=== PATIENT | male | born 1940 | race African-American/Black ===

== ENCOUNTER 2017-02-18 09:28 | Inpatient (IN) ==
--- NOTE | 2017-02-18 12:29 | Emergency Department Note ---
Abdoul Bentley Brooke, am scribing for, and in the presence of, Grace Mckinley DO 12:07 . IElías Debra, DO, personally performed the services described in this documentation, ascribed by Arianna Schreiber in my presence, and it is both accurate and complete 229 . Arrival - Arrival Chief Complaint: GI Bleed/Rectal Stated Complaint: liver mass,Rt abd pain ED Nursing Triage Note: pt c/o black stool x 1 week. reports decreased appetite and weakness. pt has mass on liver he just had ultrasound done on [facility], ordered by Dr Thomas. sclera of eyes appear yellow. Mode of Arrival: Wheelchair Limitations: No Limitations Source: Patient, Family (Daughter), RN Notes Reviewed Time Seen by Provider: 02/18/17 11:50 - History of Present Illness HPI Narrative: Patient is a 76 year old male who presents to the ED with c/o abdominal pain. Patient says he has been having pain for the past "week or two." He went to see Dr. Mckeon, this morning, where he had an ultrasound done. Daughter states that they found a "mass on his liver" and sent him here to be admitted and have tests run. Patient does have a history of alcohol abuse. He also complains of "itching all over." Patient has PMHx of Parkinson's Disease, renal failure and gets dialyzed on Tuesday, , and Tuesday, and hemorrhoids. Onset (ago): week(s) Allergies/Adverse Reactions: Allergies Allergy/AdvReac Type Severity Reaction Status Date / Time ibuprofen [From Advil] Allergy Severe Chest Pain Verified 02/18/17 09:56 povidone-iodine AdvReac Severe ITCHING Verified 02/18/17 09:56 [From Betadine] soap [From Betadine] AdvReac Severe ITCHING Verified 02/18/17 09:56 Home Medications: Home Medications Medication Instructions Recorded Confirmed Type Aspirin [Ecotrin] 81 mg PO DAILY 02/24/15 09/30/16 History Carbidopa/Levodopa 25-100 [Sinemet 1 tablet PO 0700,1100,1600 02/24/15 09/30/16 History 25-100] Meloxicam 7.5 mg PO BID 02/24/15 09/30/16 History Simvastatin 20 mg PO BEDTIME 02/24/15 09/30/16 History rOPINIRole [Requip] 0.5 mg PO TID 02/24/15 09/30/16 History Acetaminophen Tab [Tylenol Tab] 650 mg PO Q4H PRN #0 tablet 09/21/16 09/30/16 Rx Levofloxacin Tab [Levaquin Tab] 500 mg PO DAILY #10 tablet 09/21/16 09/30/16 Rx Simethicone Chew Tab [Mylicon Chew 80 mg PO TID PRN #0 tablet 09/21/16 09/30/16 Rx Tab] Prorenal D 1 tablet PO DAILY 09/30/16 09/30/16 History Review of System - Review of System 12 point system: reviewed and no additional remarkable complaints except as stated - Review of System Constitutional: Absent: fever Respiratory: Absent: respiratory distress Gastrointestinal: Present: abdominal pain Skin: Absent: rash Medical,Surgical,& Family Hx - Medical History Cardio: History of: Cardiac Dysrhythmia (Ibuprofent caused rapid heart beat) Neurology: History of: Parkinson's Disease (Thirteen years duration) HEENT: History of: Eye Problem (GLASSES) Rheumatology: No history of;: Rheumatoid Arthritis Renal: History of: Dialysis (AV GRAFT LEFT ARM, //tue), Renal Failure Gastrointestinal: History of: Hemorrhoids (REMOVAL) Musculoskeletal: History of: Musculoskeletal Problems (PEDRO SHOULDER PAIN, RT KNEE PAIN) Hematology: History of: Blood Transfusion Reaction Other: No history of: Anesthesia Reactions - Surgical History HEENT Surgeries: Patient denies: Eye Surgery, Tonsilectomy & Adenoidectomy Abdominal Surgeries: Surgical HX of: Colonoscopy Patient denies: Abdominal Surgery Orthopedic Surgeries: Surgical HX of;: Orthopedic Surgery (right knee sugery x 2 ), Total Hip Replacement (LEFT), Total Knee Replacement (RIGHT TOTAL KNEE) - Family History Family History: Reports;: Family Heart Disease (sister), Family Hypertension ( SISTERS), Family Stroke (SISTERS) Denies;: Family Anesthesia Reaction, Family Cancer, Family Diabetes, Family Psychiatric Problems - Social History Smoking Status: Former smoker Frequency of Alcohol Use: None Type of Drug Use: None Exam Vital Signs: Vital Signs Temperature 98.8 F 02/18/17 09:52 Pulse Rate 80 02/18/17 09:52 Respiratory Rate 16 02/18/17 09:52 Blood Pressure 148/83 02/18/17 09:52 O2 Sat by Pulse Oximetry 96 02/18/17 09:52 - General General appearance: alert, in no apparent distress - Head Head exam: Present: atraumatic, normocephalic - Eye Eye exam: Present: PERRL, EOMI, other (scleral yellow) - ENT ENT exam: Present: normal exam - Neck Neck exam: Present: normal inspection - Chest Chest inspection: Present: normal inspection, symmetric chest wall rise - Respiratory Respiratory exam: Present: normal lung sounds bilaterally - Cardiovascular Cardiovascular exam: Present: regular rate, normal rhythm, normal heart sounds - Abdominal Exam Abdominal exam: Present: distention, tenderness (RUQ and LUQ). Absent: soft - Extremities Exam Extremities exam: Present: normal inspection - Back Exam Back exam: Present: normal inspection - Neurological Exam Neurological exam: Present: alert, oriented X3 - Psychiatric Psychiatric exam: Present: normal affect, normal mood - Skin Skin exam: Present: warm, dry, intact. Absent: normal color (Jaundice)
[2017-02-18 13:01] LABS: Basophils # 0.1 10*3/uL (0.0-0.2); Eosinophils # 0.3 10*3/uL (0.0-0.87); Eosinophils % 3.2 % (0.00-10.9); Hematocrit 30.1 VOL% (42.0-52.0); Immature Granulocytes % 0.9 %; Immature Granulocytes Absolute 0.07 #; Lymphocytes # 1.7 10*3/uL (1.4-4.0); Mean Corpuscular HGB Conc 36.5 GM/DL (32-36); Mean Corpuscular Hemoglobin 33 PG (27-34); Mean Corpuscular Volume 89.9 FL (87-102); Mean Platelet Volume 10.6 FL (9.6-12.0); Monocytes # 0.7 10*3/uL (0.11-0.8); Monocytes % 9.4 % (1.7-12.7); Neutrophils # 4.9 10*3/uL (1.4-7.4); Neutrophils % 63.5 % (38.7-73.9); Platelet Count 198 T/CUMM (130-400); Red Blood Count 3.35 MC/CUMM (3.8-5.5); Red Cell Distribution Width 18.4 % (9.3-17.3); White Blood Count 7.8 T/CUMM (4-12)
[2017-02-18 13:11] LABS: INR 1.2; PT Patient Result 12.6 SECS
[2017-02-18 13:12] LABS: Partial Thromboplastin Time 56.3 SECS (0-40)
[2017-02-18 13:34] LABS: Albumin 2.9 G/DL (3.4-5.0); Bilirubin,Total 13.8 MG/DL (0.2-1.0); Calcium 8.8 MG/DL (8.5-10.1); Osmolality,Calculated 277.7 MOS/KG (273-304); Potassium 3.3 MMOL/L (3.5-5.1); Total Protein 7.9 G/DL (6.4-8.3)
--- NOTE | 2017-02-18 14:18 | CT Report ---
CT abdomen pelvis wo con Indication: Generalized abdominal pain Comparison: CT abdomen pelvis dated September 18, 2016 Technique: Multiple axial tomographic images of the abdomen and pelvis were obtained without the use of intravenous contrast. Findings: Mild dependent change of the lung bases present. Trace right pleural effusion. Interval increased size of hypodense liver lesion within segment 4 of the liver adjacent to the gallbladder fossa measuring up to 5.4 cm compared to 2.7 cm on prior examination when measured in similar fashion. Question interval cholecystectomy versus contracted gallbladder. Pancreas and spleen appear grossly unchanged. Bilateral adrenal glands and kidneys appear grossly unchanged. Incompletely characterized small bilateral renal cysts. Bilateral renal atrophy present. 1 mm nonobstructing right renal calculus. Urinary bladder nondistended and incompletely evaluated. Pelvis is limited secondary to metallic streak artifact from left total hip prosthesis. No evidence of gastrointestinal obstruction. Continued jomar mesenteric appearance with several retroperitoneal prominent lymph nodes which appear mildly increased in size. Home Care Physical Therapist is a left superior neck lymph node which measures 1.2 cm in short axis dimension. This is compared to 2.5 cm on comparison study. Fat-containing left inguinal hernia. Right inguinal hernia containing a small amount of small bowel as well as fluid. Atherosclerotic calcifications noted. Osseous structures appear unchanged. Ankylosis of bilateral SI joints with degenerative change of the spine. IMPRESSION: Interval increased size of hypodense liver lesion within segment 4 of the liver adjacent to the gallbladder fossa measuring up to 5.4 cm compared to 2.7 cm on prior examination when measured in similar fashion. This is inadequately characterized secondary to lack of intravenous contrast. Considerations include hepatic abscess and neoplasm. Question interval cholecystectomy versus contracted gallbladder. Interval increased retroperitoneal lymphadenopathy. Bilateral inguinal hernias, the one on the right containing small bowel. No evidence of gastrointestinal obstruction. Jomar mesentery and other detailed findings as above. The CT exam was performed using one or more of the following dose reduction techniques: Automated exposure control, adjustment of the mA and/or kV according to patient size, or use of iterative reconstruction technique. PROCEDURE INTERPRETED AT [facility] DEPARTMENT OF RADIOLOGY Final Report Signed by: Dr Ricardo Deluca
[2017-02-18] MEDS ORDERED: ONDANSETRON 4 MG/2 ML VIAL IV PRN (16:48)
[2017-02-18] MEDS ORDERED: ACETAMINOPHEN 325 MG TABLET PO PRN (16:48)
[2017-02-18] MEDS ORDERED: POTASSIUM CHLORIDE 20 MEQ TABLET PO PRN (16:50)
--- NOTE | 2017-02-18 17:08 | Hospitalist History & Physical ---
<Hien Cheng - Last Filed: 02/18/17 17:28> Assessment and Plan (1) Abdominal pain Status: Acute Assessment and plan: Pt. will be admitted. Consult GI for Current Visit: No (2) ESRD (end stage renal disease) on dialysis Problem details: No acute indication for HD at this time. Status: Chronic Assessment and plan: Patient dialyzes TTHS. Will consult nephrology to see pt. bun/creatinine chronically elevated in presence of ESRD. Current Visit: No (3) Liver lesion Status: Acute Assessment and plan: Consult IR for biopsy. Current Visit: Yes History of Present Illness Chief complaint: abdominal pain History of present illness: Mr. Salas is a 76 year old black male patient with a history of ESRD, Parkinson' s disease and anemia that presents to the ED with complaints of abdominal pain. The patient states he has been having the pain for the last 2 weeks or so. He saw Dr. Mckeon this am and an ultrasound was obtained. It revealed a "mass" and he was sent over for eval. Pt. is a former smoker and use to drink a 6 pack a day before quitting. Pt. complains of itching all over but denies fever, chills , n/v/d. Pt. does cite intermittent chest pains and says he is short of breath on exertion. Pt. is being evaluated in room on [address] with family at bedside. Pt. has been admitted and will be followed by our service. GI will be consulted to assist in care. Home Medications Medication Instructions Recorded Confirmed Type Aspirin [Ecotrin] 81 mg PO DAILY 02/24/15 02/18/17 History rOPINIRole [Requip] 0.5 mg PO TID 02/24/15 02/18/17 History Allergies Allergy/AdvReac Type Severity Reaction Status Date / Time ibuprofen [From Advil] Allergy Severe Chest Pain Verified 02/18/17 09:56 povidone-iodine AdvReac Severe ITCHING Verified 02/18/17 09:56 [From Betadine] soap [From Betadine] AdvReac Severe ITCHING Verified 02/18/17 09:56 Medical,Surgical,& Family Hx - Medical History Cardio: History of: Cardiac Dysrhythmia (Ibuprofent caused rapid heart beat) Psychological: No history of: Anxiety Disorders, ADHD, Behavior Problems, Bipolar Disorder, Depression, Previous Suicide Attempt, Psychiatric/Substance Abuse Tx, Schizophrenia, Violent Behavior, Psychiatric Problems Neurology: History of: Parkinson's Disease (Thirteen years duration) HEENT: History of: Eye Problem (GLASSES) Rheumatology: No history of;: Rheumatoid Arthritis Renal: History of: Dialysis (AV GRAFT LEFT ARM, //tue), Renal Failure Gastrointestinal: History of: Hemorrhoids (REMOVAL) Musculoskeletal: History of: Musculoskeletal Problems (PEDRO SHOULDER PAIN, RT KNEE PAIN) Hematology: History of: Blood Transfusion Reaction Other: No history of: Anesthesia Reactions - Surgical History Thoracic Surgeries: Patient denies;: Organ Transplant HEENT Surgeries: Patient denies: Eye Surgery, Tonsilectomy & Adenoidectomy Abdominal Surgeries: Surgical HX of: Colonoscopy Patient denies: Abdominal Surgery Orthopedic Surgeries: Surgical HX of;: Orthopedic Surgery (right knee sugery x 2 ), Total Hip Replacement (LEFT), Total Knee Replacement (RIGHT TOTAL KNEE) - Family History Family History: Reports;: Family Heart Disease (sister), Family Hypertension ( SISTERS), Family Stroke (SISTERS) Denies;: Family Anesthesia Reaction, Family Cancer, Family Diabetes, Family Psychiatric Problems - Social History Smoking Status: Former smoker Frequency of Alcohol Use: None Type of Drug Use: None Marital Status: Lives With:: Spouse Functional capacity: independent ambulation - Constitutional Constitutional: Absent: frequent falls, increased appetite - EENT Eyes: Absent: blurry vision, loss of vision Nose, mouth and throat: Absent: dysphagia, headache(s) - Cardiovascular Cardiovascular: Present: dyspnea on exertion, edema - Respiratory Respiratory: Present: dyspnea. Absent: wheezing - Gastrointestinal Gastrointestinal: Present: abdominal pain, bloating. Absent: nausea, vomiting - Genitourinary Genitourinary: Absent: difficulty urinating, urinary incontinence - Musculoskeletal Musculoskeletal: Absent: back pain - Neurological Neurological: Absent: confusion, numbness - Psychiatric Psychiatric: Absent: anxiety, confusion - Hematologic/Lymphatic Hematologic/Lymphatic: Absent: easy bleeding Exam - Constitutional Vitals: Period Temp Pulse Resp BP Sys/Unger Pulse Ox Last 24 Hr 97.7 F 82-88 18-18 161-162/75-91 97-99 General appearance: no acute distress - Head Head exam: Present: normal inspection, normocephalic - Eye Eye exam: Present: EOMI, periorbital swelling, scleral icterus Pupils: Present: MAKENNA. Absent: fixed - Neck Neck exam: Present: normal inspection - Respiratory Respiratory exam: Present: clear to auscultation bilaterally. Absent: wheezes - GI/Abdominal GI/Abdominal exam: Present: ascites, distended, firm. Absent: rebound - Extremities Exam Extremities exam: Present: normal capillary refill, full ROM, edema (bilateral lower extremity edema) - Neurological Exam Neurological exam: Present: alert, oriented X3, normal gait - Psychiatric Psychiatric exam: Present: normal affect, normal mood - Skin Skin exam: Present: normal color, warm, dry Results - Labs CBC & BMP: 02/18/17 12:55 02/18/17 12:53 Lab Results: I have reviewed the past 24 hour labs <Argenis Gusman - Last Filed: 02/18/17 19:38> History of Present Illness History of present illness: Mr. Salas is a 76 year old male with Liver mass. He has a long history of ETOH but quit some years back. INR GI consult Nephrology consult IR consult for possible biopsy Hepatitis panel Continue current care Exam - Constitutional Vitals: Period Temp Pulse Resp BP Sys/Unger Pulse Ox Last 24 Hr 97.7 F 82-88 18-18 161-162/75-91 97-99 Results - Labs CBC & BMP: 02/18/17 12:55 02/18/17 12:53
[2017-02-18] MEDS: SODIUM CHLORIDE 0.9% 1,000 ML IV SCH (17:23)
--- NOTE | 2017-02-18 18:57 | Nephrology Consult Note ---
History of Present Illness Chief complaint: End-stage renal disease History of present illness: Mr. aSlas is a 76 year old male history of end-stage renal disease dialyzes at the [facility] dialysis unit on a Tuesday schedule patient also has a history of Parkinson's disease who is status post dental work that was done approximately a week ago. Patient presented with a history of itching all over abdominal discomfort and diarrhea after taking antibiotics from the dental procedure. He subsequently presented to his primary care where he had an abdominal ultrasound that showed evidence of a liver mass he has been admitted and had a follow-up CT scan that showed a hypodense liver lesion that was measuring approximately 5.4 cm. At present patient describes abdominal discomfort. He denies any shortness of breath or chest pain. Nephrology is been consulted for renal issues. Home Medications Medication Instructions Recorded Confirmed Type Aspirin [Ecotrin] 81 mg PO DAILY 02/24/15 02/18/17 History rOPINIRole [Requip] 0.5 mg PO TID 02/24/15 02/18/17 History Allergies Allergy/AdvReac Type Severity Reaction Status Date / Time ibuprofen [From Advil] Allergy Severe Chest Pain Verified 02/18/17 09:56 povidone-iodine AdvReac Severe ITCHING Verified 02/18/17 09:56 [From Betadine] soap [From Betadine] AdvReac Severe ITCHING Verified 02/18/17 09:56 Medical,Surgical,& Family Hx - Medical History Cardio: History of: Cardiac Dysrhythmia (Ibuprofent caused rapid heart beat) Psychological: No history of: Anxiety Disorders, ADHD, Behavior Problems, Bipolar Disorder, Depression, Previous Suicide Attempt, Psychiatric/Substance Abuse Tx, Schizophrenia, Violent Behavior, Psychiatric Problems Neurology: History of: Parkinson's Disease (Thirteen years duration) HEENT: History of: Eye Problem (GLASSES) Rheumatology: No history of;: Rheumatoid Arthritis Renal: History of: Dialysis (AV GRAFT LEFT ARM, //tue), Renal Failure Gastrointestinal: History of: Hemorrhoids (REMOVAL) Musculoskeletal: History of: Musculoskeletal Problems (PEDRO SHOULDER PAIN, RT KNEE PAIN) Hematology: History of: Blood Transfusion Reaction Other: No history of: Anesthesia Reactions - Surgical History Thoracic Surgeries: Patient denies;: Organ Transplant HEENT Surgeries: Patient denies: Eye Surgery, Tonsilectomy & Adenoidectomy Abdominal Surgeries: Surgical HX of: Colonoscopy Patient denies: Abdominal Surgery Orthopedic Surgeries: Surgical HX of;: Orthopedic Surgery (right knee sugery x 2 ), Total Hip Replacement (LEFT), Total Knee Replacement (RIGHT TOTAL KNEE) - Family History Family History: Reports;: Family Heart Disease (sister), Family Hypertension ( SISTERS), Family Stroke (SISTERS) Denies;: Family Anesthesia Reaction, Family Cancer, Family Diabetes, Family Psychiatric Problems - Social History Smoking Status: Former smoker Frequency of Alcohol Use: None Type of Drug Use: None Review of Systems Constitutional: fatigue, no chills, no fever(s) Cardiovascular: no chest pain at rest, no chest pain with activity, no dyspnea, no dyspnea on exertion Gastrointestinal: abdominal pain, diarrhea Exam - Vital Signs Vital signs: Period Temp Pulse Resp BP Sys/Unger Pulse Ox Last 24 Hr 97.7 F 82-88 18-18 161-162/75-91 97-99 - General Appearance General appearance: well-developed, well-nourished EENT: ATNC, PERRL Neck: supple Respiratory: clear Cardiology: regular rate, regular rhythm Gastrointestinal: tenderness (Mild tenderness to deep palpation), guarding Neurologic: alert and oriented x3 Musculoskeletal: no clubbing Psychiatric: mood/affect appropriate, cooperative Results - Labs CBC & BMP: 02/18/17 12:55 02/18/17 12:53 Assessment and Plan (1) Parkinson disease, symptomatic Status: Chronic Current Visit: No (2) ESRD (end stage renal disease) on dialysis Problem details: No acute indication for HD at this time. Status: Chronic Assessment and plan: Schedule hemodialysis for Tuesday schedule. Current Visit: No (3) Abdominal pain Status: Acute Current Visit: No (4) Liver lesion Status: Chronic Assessment and plan: Appears to be larger in comparison to other CT studies. Current Visit: Yes
[2017-02-19] MEDS: SODIUM CHLORIDE 0.9% 1,000 ML IV SCH ×2 (06:19→19:24)
[2017-02-19 07:09] LABS: Basophils # 0.1 10*3/uL (0.0-0.2); Basophils % 1.2 % (0.0-0.8); Eosinophils # 0.3 10*3/uL (0.0-0.87); Eosinophils % 4.2 % (0.00-10.9); Hematocrit 29.4 VOL% (42.0-52.0); Hemoglobin 10.6 GM/DL (14.0-18.0); Immature Granulocytes Absolute 0.08 #; Lymphocytes # 1.9 10*3/uL (1.4-4.0); Lymphocytes % 23.9 % (21.2-54.2); Mean Corpuscular HGB Conc 36.1 GM/DL (32-36); Mean Corpuscular Hemoglobin 32 PG (27-34); Mean Corpuscular Volume 87.5 FL (87-102); Mean Platelet Volume 11.4 FL (9.6-12.0); Monocytes # 0.8 10*3/uL (0.11-0.8); Monocytes % 10.5 % (1.7-12.7); Neutrophils # 4.6 10*3/uL (1.4-7.4); Neutrophils % 59.2 % (38.7-73.9); Platelet Count 220 T/CUMM (130-400); Red Blood Count 3.36 MC/CUMM (3.8-5.5); Red Cell Distribution Width 18.3 % (9.3-17.3); White Blood Count 7.8 T/CUMM (4-12)
[2017-02-19 07:47] LABS: Calcium 8.3 MG/DL (8.5-10.1); Free T4 (Free Thyroxine) 1.54 NG/DL (0.76-1.46); Magnesium 2.3 MG/DL (1.8-2.4); Osmolality,Calculated 279.7 MOS/KG (273-304); Potassium 3.6 MMOL/L (3.5-5.1); Risk Ratio 8.36; Thyroid Stimulating Hormone 3.84 uIU/ml (0.358-3.74); VLDL CHOLESTEROL 40.2 MG/DL
[2017-02-19] MEDS: PANTOPRAZOLE 40 MG TABLET PO SCH (08:03)
[2017-02-19 08:28] LABS: Hepatitis A Ab IgM Quant 0.11 Index; Hepatitis A Ab IgM Result Negative (Negative); Hepatitis B Core IgM Quant 0.16 Index; Hepatitis B Core IgM Result Negative (Negative); Hepatitis B Surface Ag Quant < 0.10 Index; Hepatitis B Surface Ag Result Negative (Negative); Hepatitis C Virus Ab Quant 0.14 Index; Hepatitis C Virus Ab Result Negative (Negative)
--- NOTE | 2017-02-19 10:58 | Dialysis Note ---
Dialysis Note - Dialysis Note The patient is seen on dialysis. He is tolerating the procedure. Blood pressures noted to be 149/76.
--- NOTE | 2017-02-19 13:59 | Hospitalist Progress Note ---
Assessment and Plan (1) Abdominal pain Status: Acute Assessment and plan: due to Liver lesion.CT showed an interval increased size of hypodense liver lesion within segment 4 of the liver adjacent to the gall baldder fossa measuring up to 5.4cm compared to 2.7cm on prior exam-? hepatic abscess vs neoplasm. Plan GI has been consulted IR would most likely biopsy the mass on Tuesday. Current Visit: No (2) ESRD (end stage renal disease) on dialysis Problem details: No acute indication for HD at this time. Status: Chronic Assessment and plan: Nephrology is following. Current Visit: No Hospitalist: Subjective Interval history: Patient went for dialysis today.IR should be biopsying liver mass on Tuesday Exam - Constitutional Vitals: Period Temp Pulse Resp BP Sys/Unger Pulse Ox Last 24 Hr 97.7 F-97.9 F 63-88 16-20 138-162/70-91 97-100 General appearance: no acute distress, other (jaundiced) - Head Head exam: Present: normal inspection - Respiratory Respiratory exam: Present: clear to auscultation bilaterally - GI/Abdominal GI/Abdominal exam: Present: ascites - Extremities Exam Extremities exam: Present: edema Results - Labs CBC & BMP: 02/19/17 05:55 02/19/17 05:55 Lab Results: I have reviewed the past 24 hour labs
[2017-02-20 06:08] LABS: Basophils # 0.1 10*3/uL (0.0-0.2); Basophils % 0.9 % (0.0-0.8); Eosinophils # 0.4 10*3/uL (0.0-0.87); Eosinophils % 4.6 % (0.00-10.9); Hematocrit 27.2 VOL% (42.0-52.0); Immature Granulocytes % 1.4 %; Immature Granulocytes Absolute 0.11 #; Lymphocytes # 1.5 10*3/uL (1.4-4.0); Lymphocytes % 19.3 % (21.2-54.2); Mean Corpuscular HGB Conc 36.8 GM/DL (32-36); Mean Corpuscular Hemoglobin 32 PG (27-34); Mean Corpuscular Volume 87.7 FL (87-102); Mean Platelet Volume 11.4 FL (9.6-12.0); Monocytes # 0.8 10*3/uL (0.11-0.8); Monocytes % 10.5 % (1.7-12.7); Neutrophils % 63.3 % (38.7-73.9); Platelet Count 205 T/CUMM (130-400); Red Cell Distribution Width 18.4 % (9.3-17.3); White Blood Count 7.8 T/CUMM (4-12)
[2017-02-20 06:31] LABS: Calcium 8.3 MG/DL (8.5-10.1); Osmolality,Calculated 275.8 MOS/KG (273-304); Potassium 3.8 MMOL/L (3.5-5.1)
[2017-02-20] MEDS: PANTOPRAZOLE 40 MG TABLET PO SCH (08:07)
--- NOTE | 2017-02-20 08:11 | Gastrointestinal Consult Note ---
Assessment and Plan - Time spent with patient Time spent with patient: Greater than 30 minutes (1) Abdominal pain Status: Acute Current Visit: No (2) Abnormal findings on diagnostic imaging of abdomen Status: Acute Current Visit: Yes (3) Other specified counseling Status: Acute Current Visit: Yes History of Present Illness History of present illness: Mr. Salas is a 76 year old male Home Medications Medication Instructions Recorded Confirmed Type Aspirin [Ecotrin] 81 mg PO DAILY 02/24/15 02/18/17 History rOPINIRole [Requip] 0.5 mg PO TID 02/24/15 02/18/17 History Allergies Allergy/AdvReac Type Severity Reaction Status Date / Time ibuprofen [From Advil] Allergy Severe Chest Pain Verified 02/18/17 09:56 povidone-iodine AdvReac Severe ITCHING Verified 02/18/17 09:56 [From Betadine] soap [From Betadine] AdvReac Severe ITCHING Verified 02/18/17 09:56 Medical,Surgical,& Family Hx - Medical History Cardio: History of: Cardiac Dysrhythmia (Ibuprofent caused rapid heart beat) Psychological: No history of: Anxiety Disorders, ADHD, Behavior Problems, Bipolar Disorder, Depression, Previous Suicide Attempt, Psychiatric/Substance Abuse Tx, Schizophrenia, Violent Behavior, Psychiatric Problems Neurology: History of: Parkinson's Disease (Thirteen years duration) HEENT: History of: Eye Problem (GLASSES) Rheumatology: No history of;: Rheumatoid Arthritis Renal: History of: Dialysis (AV GRAFT LEFT ARM, //tue), Renal Failure Gastrointestinal: History of: Hemorrhoids (REMOVAL) Musculoskeletal: History of: Musculoskeletal Problems (PEDRO SHOULDER PAIN, RT KNEE PAIN) Hematology: History of: Blood Transfusion Reaction Other: No history of: Anesthesia Reactions - Surgical History Thoracic Surgeries: Patient denies;: Organ Transplant HEENT Surgeries: Patient denies: Eye Surgery, Tonsilectomy & Adenoidectomy Abdominal Surgeries: Surgical HX of: Colonoscopy Patient denies: Abdominal Surgery Orthopedic Surgeries: Surgical HX of;: Orthopedic Surgery (right knee sugery x 2 ), Total Hip Replacement (LEFT), Total Knee Replacement (RIGHT TOTAL KNEE) - Family History Family History: Reports;: Family Heart Disease (sister), Family Hypertension ( SISTERS), Family Stroke (SISTERS) Denies;: Family Anesthesia Reaction, Family Cancer, Family Diabetes, Family Psychiatric Problems - Social History Smoking Status: Former smoker Frequency of Alcohol Use: None Type of Drug Use: None Exam - Constitutional Vitals: Period Temp Pulse Resp BP Sys/Unger Pulse Ox Last 24 Hr 97.9 F-99.2 F 51-85 16-20 129-165/61-85 97-100 Results - Labs CBC & BMP: 02/20/17 05:20 02/20/17 05:20 Note Addendum: PLEASE NOTE -- automatic citation of patient information is unavoidable in this electronic note. I have made a reasonable effort to review the information cited , but it is not a part of my evaluation, impression, or recommendation unless specifically discussed in the dictated text that follows. As well, voice recognition software was used in the creation of this clinical note. Reasonable effort was made to identify and correct gross errors. Despite proofreading, errors in drafter civil (cad) may be present, including nonsense verbiage at times. If you encounter such an error, please contact me at for discussion and correction. -- Alexa Chief complaint: abdominal pain History of present illness: This is a new patient, a 76-year-old male seen by consultation for evaluation of abdominal pain. The patient is admitted to the hospitalist service under the care of Dr. Gusman with a primary diagnosis of same. The patient was admitted through the emergency department yesterday with primary complaint of mild abdominal cramping, pruritus, and jaunfice. Evaluation at that time revealed mild normocytic anemia, mild coagulopathy, and both laboratory and radiologic evidence of obstructive jaundice. The patient reports that this abdominal pain has been plaguing him for at least two weeks. Ultrasound was accomplished on the day of admission which revealed evidence of a hepatic mass. He has a history of daily alcohol use but quit this sometime ago. He reports having been admitted here in September, or so, of last year with abdominal discomfort and recalls having undergone a percutaneous drainage of his gallbladder. He did not undergo cholecystectomy at that time. Subsequent his discharge, he followed up with a surgeon who advised against cholecystectomy as long as he was feeling well, per the patient's recollection. Review of the inpatient surgical record from September of last year confirms the patient's recollection of acute cholecystitis as well as percutaneous drainage. He suffers from chronic kidney disease requiring dialysis and was last treated yesterday. Patient denies fever, chills, night sweats, rigors, dizziness, neck pain, visual changes, redness of the eyes, dysphagia, odynophagia, difficulty chewing , regurgitation, hematemesis, diarrhea, hematochezia, melena, proctalgia, constipation, change in bowel pattern generally, dysuria, skin changes, temperature regulation issues, flushing, easy bleeding/bruising, mental status change, numbness/weakness in the extremities, yellowing of the eyes/skin, cutaneous eruptions, family history of gastrointestinal cancer and colon polyps , and other complaints in general. Review of systems: 12 point review of systems was negative except as documented above. Outpatient medications: aspirin, ropinirole Inpatient medications: Tylenol, [place], Zofran, Protonix, potassium chloride, normal saline infusion Past Medical History: cardiac dysrhythmia, Parkinson's disease, chronic kidney disease, history of transfusion reaction Social history: negative tobacco. Former alcohol Family history: no gastrointestinal cancers Physical examination: Vital Signs: Current vital signs reviewed and documented above. General Appearance: well-appearing. Not acutely ill. Sitting in a bedside chair eating breakfast. Head: Normocephalic. Neck: Palpation of the neck revealed no abnormalities. Eyes: No scleral icterus. No scleral injection. No conjunctival pallor. Oral Cavity: Odor of breath was normal. No drooling was observed. Lips showed no abnormalities. Floor of the mouth showed no abnormalities. Pharynx: Oropharynx was normal. Lungs: Respiration rhythm and depth was normal. Cardiovascular: Heart rate and rhythm were normal. No murmurs were appreciated. Abdomen: abdomen was not distended. Abdominal palpation revealed minimal tenderness and no hepatosplenomegaly. Ascites was not discovered. Abdominal auscultation revealed positive bowel sounds. Musculoskeletal System: Musculoskeletal system was grossly normal. Neurological: level of consciousness was normal. Speech was normal. Skin: General appearance was normal. Color and pigmentation were normal. No skin lesions. Laboratory: white blood count 7.8, hemoglobin 10.0, hematocrit 27.2, platelets 205, INR 1.2, PT 12.6, ALT 50, AST 63, alkaline phosphatase 209, total bilirubin 13.8, albumin 2.9, total protein 7.9, lipase 551, viral hepatitis screen negative Radiology: -- CT of the abdomen and pelvis, February 18, 2017: hypodense liver lesion within segment 4 adjacent to the gallbladder fossa measuring 5.4 cm, inadequately characterized due to lack of IV contrast; considerations include hepatic abscess and neoplasm; increased retroperitoneal lymphadenopathy; bilateral inguinal hernia -- Right upper quadrant ultrasound, February 18, 2017: gallbladder is not identified inpatient with history of prior percutaneous code assist ostomy, rather predominantly solid 65 x 49 x 43 mm abnormality in the area of the gallbladder bed which may be related to the prior cholecystitis, hematoma, or mass. -- Right upper quadrant ultrasound, September 18, 2016: distended gallbladder with sludge in thickened wall; fatty liver infiltration; no other definite evidence of abnormality demonstrated Impressions: 1. Abdominal pain -- almost certainly related to right upper quadrant pathology , likely a maturing fluid collection involving known diseased gallbladder bed. Consider further imaging to better characterize the nature of this finding. MRCP may be helpful in determining whether the common bile duct is obstructed. Elevated bilirubin out of proportion to alkaline phosphatase implies the possibility of a biliary leak rather than a true obstructive process and this is consistent with data that has been collected to date. I recommend a surgical consultation (Dr. Lisa BUSH saw the patient previously). I recommend initiation of a broad-spectrum antibiotic regimen with enteric coverage, renally dosed. Depending on radiologic findings, there could be some role for ERCP with trans papillary stenting though this is far from clear at present. 2. Nonspecific abnormal imaging, liver -- as discussed above. 3. Other specified counseling -- The patient was seen for greater than 30 minutes. The patient was counseled for greater than 50% of this time regarding differential diagnosis, likely diagnosis, diagnostic and therapeutic alternatives, risks/benefits/alternatives of medications and procedures, and plan of care generally. The patient expressed understanding and wishes to proceed. Recommendations: -- initiate broad-spectrum antibiotic coverage, renally dosed -- further imaging to better characterize nature of this lesion, MRCP most sensitive; clear with nephrology consiltant -- general surgery consultation -- possible indication for endoscopic intervention depending on radiologic results -- consider Atarax for pruritis -- thank you for this consultation. Dr. Ruiz will assume G.I. care for this patient tomorrow.
[2017-02-20] MEDS: SODIUM CHLORIDE 0.9% 1,000 ML IV SCH ×2 (10:22→23:00)
--- NOTE | 2017-02-20 14:14 | Hospitalist Progress Note ---
Assessment and Plan (1) Abdominal pain Status: Acute Assessment and plan: due to Liver lesion.CT showed an interval increased size of hypodense liver lesion within segment 4 of the liver adjacent to the gall baldder fossa measuring up to 5.4cm compared to 2.7cm on prior exam-? hepatic abscess vs neoplasm. Plan GI is following IR would most likely biopsy the mass in am. Current Visit: No (2) ESRD (end stage renal disease) on dialysis Problem details: No acute indication for HD at this time. Status: Chronic Assessment and plan: Nephrology is following. Current Visit: No Hospitalist: Subjective Interval history: Patient seen.He had a session of HD yesterday. Exam - Constitutional Vitals: Period Temp Pulse Resp BP Sys/Unger Pulse Ox Last 24 Hr 98.1 F-99.2 F 51-85 16-20 129-165/59-85 97-100 General appearance: no acute distress, other (juandiced) - Head Head exam: Present: normal inspection - Respiratory Respiratory exam: Present: clear to auscultation bilaterally - Cardiovascular Cardiovascular exam: Present: regular rate and rhythm - GI/Abdominal GI/Abdominal exam: Present: tenderness - Extremities Exam Extremities exam: Present: normal inspection Results - Labs CBC & BMP: 02/20/17 05:20 02/20/17 05:20 Lab Results: I have reviewed the past 24 hour labs
--- NOTE | 2017-02-20 14:28 | Nephrology Progress Note ---
Nephrology - PN: Subj Interval history: Patient is resting comfortably sitting up in chair actually states he has no complaints today tolerated dialysis on yesterday no other acute changes. Exam (PN)-Nephrology - Vital Signs Vital signs: Period Temp Pulse Resp BP Sys/Unger Pulse Ox Last 24 Hr 98.1 F-99.2 F 51-85 16-20 129-165/59-85 97-100 - General Appearance General appearance: well-developed, well-nourished EENT: ATNC Neck: supple Respiratory: clear Cardiology: no edema, regular rate, regular rhythm Gastrointestinal: normoactive bowel sounds, no tenderness Neurologic: alert and oriented x3, CN 3-12 intact Musculoskeletal: no clubbing Psychiatric: mood/affect appropriate - Lab 02/20/17 05:20 02/20/17 05:20 Most recent lab results Calcium 8.3 MG/DL (8.5-10.1) L 02/20/17 05:20 Magnesium 2.3 MG/DL (1.8-2.4) 02/19/17 05:55 Assessment and Plan (1) Parkinson disease, symptomatic Status: Chronic Current Visit: No (2) ESRD (end stage renal disease) on dialysis Problem details: No acute indication for HD at this time. Status: Chronic Assessment and plan: Schedule hemodialysis for Tuesday schedule. Current Visit: No (3) Abdominal pain Status: Acute Current Visit: No (4) Liver lesion Status: Chronic Assessment and plan: Appears to be larger in comparison to other CT studies. Current Visit: Yes
--- NOTE | 2017-02-21 06:47 | Nephrology Progress Note ---
Nephrology - PN: Subj Interval history: Patient is resting comfortably no acute changes. Exam (PN)-Nephrology - Vital Signs Vital signs: Period Temp Pulse Resp BP Sys/Unger Pulse Ox Last 24 Hr 98.1 F-98.7 F 51-91 16-20 127-149/59-74 96-100 - General Appearance General appearance: well-developed, well-nourished Neck: supple Respiratory: clear Gastrointestinal: normoactive bowel sounds Neurologic: alert and oriented x3, CN 3-12 intact Musculoskeletal: no clubbing Psychiatric: mood/affect appropriate - Lab 02/20/17 05:20 02/20/17 05:20 Most recent lab results Calcium 8.3 MG/DL (8.5-10.1) L 02/20/17 05:20 Magnesium 2.3 MG/DL (1.8-2.4) 02/19/17 05:55 Assessment and Plan (1) Parkinson disease, symptomatic Status: Chronic Current Visit: No (2) ESRD (end stage renal disease) on dialysis Problem details: No acute indication for HD at this time. Status: Chronic Assessment and plan: Schedule hemodialysis for Tuesday schedule. Current Visit: No (3) Abdominal pain Status: Acute Current Visit: No (4) Liver lesion Status: Chronic Assessment and plan: Appears to be larger in comparison to other CT studies. GI following Current Visit: Yes
--- NOTE | 2017-02-21 09:05 | Gastrointestinal Progress Note ---
<Romy Burns Bernardino - Last Filed: 02/21/17 09:02> Assessment and Plan (1) Abdominal pain Status: Acute Assessment and plan: 02/21-reports of worsening abdominal pain, pruritus and jaundice with findings of 5 x 2 cm liver lesion questionable for abscess/neoplasm. Bilirubin 13 on yesterday with lipase 551. Abdominal pain improved as well as pruritus. Dialysis Tuesday, , Tuesday. Repeat LFTs and lipase today. Plan an addendum to followed by Dr. Ruiz. Current Visit: No Gastroenterology - PN: Subj Interval history: CC: Abdominal pain Patient is seen awake and alert sitting up in bed. Patient was admitted on with onset of abdominal pain. He has a history of end-stage renal disease, Parkinson's disease and anemia. He was found on CT scan on admission to have a hypodense liver lesion measuring 5 x 2 cm questionable for hepatic abscess/ neoplasm. He has a fairly recent history of cholecystitis with percutaneous cholecystostomy tube in September of this past year. He was admitted with complaints of abdominal pain, pruritus and jaundice. States he is feeling a little better today and denies abdominal pain at this time. He denies any nausea or vomiting as well. He states that his pruritus is improved some from admission. Abdomen is soft, nontender. No repeat LFTs noted today. ROS: Denies shortness of breath or chest pain Exam (Progress Note) - Constitutional Vitals: Period Temp Pulse Resp BP Sys/Unger Pulse Ox Last 24 Hr 98.1 F-98.7 F 64-91 16-20 127-149/59-74 96-100 General appearance: normal weight, no acute distress - Head Head exam: Present: normal inspection, normocephalic - Eye Eye exam: Present: scleral icterus, other (Lids and conjunctive are unremarkable ) - ENT ENT exam: Present: normal exam, normal oropharynx - Neck Neck exam: Present: normal inspection - Respiratory Respiratory exam: Present: clear to auscultation bilaterally. Absent: rales, rhonchi, wheezes - Cardiovascular Cardiovascular exam: Present: regular rate and rhythm. Absent: diastolic murmur , JVD, systolic murmur - GI/Abdominal GI/Abdominal exam: Present: normal bowel sounds, tenderness, soft. Absent: ascites, distended, mass, organomegaly - Extremities Exam Extremities exam: Present: normal inspection, full ROM - Back Exam Back exam: Present: normal inspection - Neurological Exam Neurological exam: Present: alert, oriented X3 - Psychiatric Psychiatric exam: Present: normal affect, normal mood - Skin Skin exam: Present: warm, dry, other (Jaundice) Results - Labs CBC & BMP: 02/20/17 05:20 02/20/17 05:20 Lab Results: I have reviewed the past 24 hour labs - Diagnostic Findings Procedure: CT Abdomen and Pelvis: report reviewed by me <Cesar Ruiz - Last Filed: 02/21/17 18:23> Exam (Progress Note) - Constitutional Vitals: Period Temp Pulse Resp BP Sys/Unger Pulse Ox Last 24 Hr 98.2 F-98.8 F 76-91 16-20 127-149/44-74 96-100 Results - Labs CBC & BMP: 02/20/17 05:20 02/20/17 05:20
[2017-02-21] MEDS ORDERED: DIAZEPAM 5 MG TABLET PO ONE (10:57)
--- NOTE | 2017-02-21 11:12 | IR History and Physical Update ---
IR Pre-Procedure - History and Physical H&P was reviewed, the patient examined and there: are no changes in the patients condition since last H&P was completed. Reason for procedure:: 76 yoM w/ liver hypodensity on non-contrast CT abdomen. Asked to biopsy. CT reviewed and "mass" may actually be an abscess. Plan US guided guide needle placement in mass, biopsy of wall of the lesion, then if able to aspirate purulent fluid, place drain in collection. - Dictation Physical: refer to scanned H&P - Physical Exam Vital Signs: Last Vital Signs Temp 98.6 F 02/21/17 04:10 Pulse 91 H 02/21/17 04:10 Resp 20 02/21/17 04:10 BP 127/67 02/21/17 04:10 Pulse Ox 96 02/21/17 04:10 Mental Status: alert and oriented - Sedation IR anesthesia plan for sedation: minimal ASA Class: II - Risks Risks: Procedures explained. Risks discussed include, but not limited to, the following:[ pain, bleeding, infection] All questions answered. The following alternatives were discussed:[ ] Risks and benefits discussed with: patient Consent obtained from: patient Assessment and Plan - Time spent with patient Time spent with patient: Less than 30 minutes
--- NOTE | 2017-02-21 11:40 | Post Interventional Procedure ---
Pre-op diagnosis: Liver mass, possible abscess Post-op diagnosis: other (Liver mass) Procedure: Ultrasound-guided liver mass biopsy, aspiration Radiologist: Mukul Miranda Anesthesia: local Specimens: other (318-gauge core samples liver mass, 3 cc aspirate of debris- filled bloody fluid) Estimated blood loss: none Complications: none Condition: stable Description/Findings: Ultrasound of the liver lesion shows it to be solid with a couple of small internal hypoechoic collections which, when penetrated by needle, are probably tiny infected fluid pockets. However, the majority of the mass is solid and ample tissue was obtained for diagnostic purposes. Suspect neoplasm. Assessment and Plan - Time spent with patient Time spent with patient: Less than 30 minutes
--- NOTE | 2017-02-21 12:56 | Hospitalist Progress Note ---
Assessment and Plan (1) Abdominal pain Status: Acute Assessment and plan: due to Liver lesion.CT showed an interval increased size of hypodense liver lesion within segment 4 of the liver adjacent to the gall baldder fossa measuring up to 5.4cm compared to 2.7cm on prior exam-? hepatic abscess vs neoplasm.Pat had an USS guided biopsy of the liver mass this am. Plan GI is following Follow biopsy report Current Visit: No (2) ESRD (end stage renal disease) on dialysis Problem details: No acute indication for HD at this time. Status: Chronic Assessment and plan: Nephrology is following. Current Visit: No Hospitalist: Subjective Interval history: Patient had an USS- guided Liver biopsy of a mass this am. Exam - Constitutional Vitals: Period Temp Pulse Resp BP Sys/Unger Pulse Ox Last 24 Hr 98.2 F-98.7 F 66-91 16-20 127-149/44-74 96-100 General appearance: no acute distress, other (juandiced) - Head Head exam: Present: normal inspection - Respiratory Respiratory exam: Present: clear to auscultation bilaterally - Cardiovascular Cardiovascular exam: Present: regular rate and rhythm - GI/Abdominal GI/Abdominal exam: Present: tenderness - Extremities Exam Extremities exam: Present: normal inspection Results - Labs CBC & BMP: 02/20/17 05:20 02/20/17 05:20 Lab Results: I have reviewed the past 24 hour labs
--- NOTE | 2017-02-21 14:28 | Ultrasound Report ---
US biopsy liver core Indication: Liver mass. ULTRASOUND-GUIDED LIVER BIOPSY, MASS Description: A formal timeout was performed. Maximum sterile barrier technique was used. Liver was evaluated with ultrasound. Right upper quadrant was prepped and draped in sterile fashion. Lidocaine was administered. Under sonographic guidance, a 17-gauge coaxial biopsy needle was advanced into the region of interest. A captured sonographic image documents needle position. Through the needle, multiple 18-gauge core biopsies were obtained. After the final biopsy, aspirate of the guide needle was performed obtaining approximately 3 cc debris laden blood. The guide needle was removed. Final ultrasound images showed no evidence of hematoma. Patient tolerated the procedure well. Specimen: 3 x 18 gauge core samples liver mass, 3 cc aspirate. Impression: Successful liver biopsy. PROCEDURE INTERPRETED AT [facility] DEPARTMENT OF RADIOLOGY Final Report Signed by: Mukul Miranda M.D.
[2017-02-21] MEDS: PANTOPRAZOLE 40 MG TABLET PO SCH (14:40)
--- NOTE | 2017-02-21 15:33 | General Surgery Consult Note ---
History of Present Illness History of present illness: Mr. Salas is a 76 year old male Home Medications Medication Instructions Recorded Confirmed Type Aspirin [Ecotrin] 81 mg PO DAILY 02/24/15 02/18/17 History rOPINIRole [Requip] 0.5 mg PO TID 02/24/15 02/18/17 History Allergies Allergy/AdvReac Type Severity Reaction Status Date / Time ibuprofen [From Advil] Allergy Severe Chest Pain Verified 02/18/17 09:56 povidone-iodine AdvReac Severe ITCHING Verified 02/18/17 09:56 [From Betadine] soap [From Betadine] AdvReac Severe ITCHING Verified 02/18/17 09:56 Medical,Surgical,& Family Hx - Medical History Cardio: History of: Cardiac Dysrhythmia (Ibuprofent caused rapid heart beat) Psychological: No history of: Anxiety Disorders, ADHD, Behavior Problems, Bipolar Disorder, Depression, Previous Suicide Attempt, Psychiatric/Substance Abuse Tx, Schizophrenia, Violent Behavior, Psychiatric Problems Neurology: History of: Parkinson's Disease (Thirteen years duration) HEENT: History of: Eye Problem (GLASSES) Rheumatology: No history of;: Rheumatoid Arthritis Renal: History of: Dialysis (AV GRAFT LEFT ARM, //tue), Renal Failure Gastrointestinal: History of: Hemorrhoids (REMOVAL) Musculoskeletal: History of: Musculoskeletal Problems (PEDRO SHOULDER PAIN, RT KNEE PAIN) Hematology: History of: Blood Transfusion Reaction Other: No history of: Anesthesia Reactions - Surgical History Thoracic Surgeries: Patient denies;: Organ Transplant HEENT Surgeries: Patient denies: Eye Surgery, Tonsilectomy & Adenoidectomy Abdominal Surgeries: Surgical HX of: Colonoscopy Patient denies: Abdominal Surgery Orthopedic Surgeries: Surgical HX of;: Orthopedic Surgery (right knee sugery x 2 ), Total Hip Replacement (LEFT), Total Knee Replacement (RIGHT TOTAL KNEE) - Family History Family History: Reports;: Family Heart Disease (sister), Family Hypertension ( SISTERS), Family Stroke (SISTERS) Denies;: Family Anesthesia Reaction, Family Cancer, Family Diabetes, Family Psychiatric Problems - Social History Smoking Status: Former smoker Frequency of Alcohol Use: None Type of Drug Use: None Exam - Constitutional Vitals: Period Temp Pulse Resp BP Sys/Unger Pulse Ox Last 24 Hr 98.2 F-98.7 F 66-91 16-20 127-149/44-74 96-100 Results - Labs CBC & BMP: 02/20/17 05:20 02/20/17 05:20
--- NOTE | 2017-02-21 15:36 | Event Note ---
consult to follow. I saw patient but alli clarke ot working
[2017-02-22 05:34] LABS: AFP Tumor 1.3 NG/ML (0-8)
[2017-02-22 06:56] LABS: Carcinoembryonic Antigen 128.2 NG/ML (0.0-5.0)
--- NOTE | 2017-02-22 07:41 | General Surgery Progress Note ---
Assessment and Plan - Time spent with patient Time spent with patient: Less than 30 minutes (1) Liver lesion Status: Chronic Assessment and plan: His Ca 19-9 level is extremely elevated. This is suggestive of a hepatobiliary malignancy. The biopsy is pending. I discussed this with Mr Salas. I'll review with radiology to look at surgical options or possible biliary drainage options Current Visit: Yes Subjective Patient reports: Present: feels better, pain is less. Absent: nausea, vomiting , fever Exam - Constitutional Vitals: Period Temp Pulse Resp BP Sys/Unger Pulse Ox Last 24 Hr 98.6 F-100.1 F 76-84 16-18 128-155/44-76 96-100 General appearance: no acute distress - Head Head exam: Present: normocephalic - Eye Eye exam: Present: scleral icterus - GI/Abdominal GI/Abdominal exam: Present: soft. Absent: distended, tenderness Results - Labs CBC & BMP: 02/20/17 05:20 02/20/17 05:20 Lab Results: I have reviewed the past 24 hour labs - Diagnostic Findings Procedure: CT Abdomen and Pelvis: report reviewed by me
[2017-02-22] MEDS: SODIUM CHLORIDE 0.9% 1,000 ML IV SCH ×2 (08:25→15:20)
[2017-02-22] MEDS: PANTOPRAZOLE 40 MG TABLET PO SCH (08:33)
--- NOTE | 2017-02-22 08:44 | Gastrointestinal Progress Note ---
<Romy Burns Bernardino - Last Filed: 02/22/17 08:42> Assessment and Plan (1) Abdominal pain Status: Acute Assessment and plan: 02/22-liver biopsy pathology pending at present time. Elevated CEA and CA-19-9 noted. Recheck LFTs today. Plan an addendum to follow by Dr. Ruiz. 02/21-reports of worsening abdominal pain, pruritus and jaundice with findings of 5 x 2 cm liver lesion questionable for abscess/neoplasm. Bilirubin 13 on yesterday with lipase 551. Abdominal pain improved as well as pruritus. Dialysis Tuesday, , Tuesday. Repeat LFTs and lipase today. Plan an addendum to followed by Dr. Ruiz. Current Visit: No Gastroenterology - PN: Subj Interval history: CC: Abdominal pain Patient is seen awake and alert sitting up in chair eating breakfast. States he has a good appetite and denies any abdominal pain at this time other than some mild soreness from the liver biopsy site on yesterday. Denies any nausea or vomiting at present time patient is afebrile. His CA-19-9 level was noted to be returned very elevated at 103,289 as well as a CEA at 128. His AFP was negative at 1.3. Abdomen is soft, mild tenderness. No repeat LFTs today ROS: Denies shortness of breath or chest pain. Exam (Progress Note) - Constitutional Vitals: Period Temp Pulse Resp BP Sys/Unger Pulse Ox Last 24 Hr 98.6 F-100.1 F 76-84 16-18 128-155/44-76 96-100 General appearance: normal weight, no acute distress - Head Head exam: Present: normal inspection, normocephalic - Eye Eye exam: Present: other (Lids and conjunctivae unremarkable). Absent: scleral icterus - ENT ENT exam: Present: normal exam, normal oropharynx - Neck Neck exam: Present: normal inspection - Respiratory Respiratory exam: Present: clear to auscultation bilaterally. Absent: rales, rhonchi, wheezes - Cardiovascular Cardiovascular exam: Present: regular rate and rhythm. Absent: diastolic murmur , JVD, systolic murmur - GI/Abdominal GI/Abdominal exam: Present: normal bowel sounds, soft. Absent: ascites, distended, mass, organomegaly, tenderness - Extremities Exam Extremities exam: Present: normal inspection, full ROM - Back Exam Back exam: Present: normal inspection - Neurological Exam Neurological exam: Present: alert, oriented X3 - Psychiatric Psychiatric exam: Present: normal affect, normal mood - Skin Skin exam: Present: normal color, warm, dry Results - Labs CBC & BMP: 02/20/17 05:20 02/20/17 05:20 Lab Results: I have reviewed the past 24 hour labs <Cesar Ruiz - Last Filed: 02/22/17 23:08> Exam (Progress Note) - Constitutional Vitals: Period Temp Pulse Resp BP Sys/Unger Pulse Ox Last 24 Hr 98.8 F-102 F 78-106 16-20 138-194/67-98 96-98 Results - Labs CBC & BMP: 02/20/17 05:20 02/20/17 05:20
[2017-02-22 10:20] LABS: Albumin 2.3 G/DL (3.4-5.0); Bilirubin,Direct 17.2 MG/DL (0.0-0.20); Bilirubin,Indirect 3.2 MG/DL (0.0-1.0); Total Protein 5.8 G/DL (6.4-8.3)
[2017-02-22 10:22] LABS: Bilirubin,Total 20.4 MG/DL (0.2-1.0)
--- NOTE | 2017-02-22 10:28 | Nephrology Progress Note ---
Nephrology - PN: Subj Interval history: Patient is seen on hemodialysis, he is tolerating this well. Review of systems GI patient complains of abdominal distention when he bends over. Physical exam general the patient is in no acute distress, he has trace to 1+ pretibial edema Assessment/plan #1. End-stage renal disease-we will continue hemodialysis support 2. Hepatic mass-pathology on the liver biopsy is pending 3. Anemia-patient's hematocrit is 27% 4. Parkinson's disease Exam (PN)-Nephrology - Vital Signs Vital signs: Period Temp Pulse Resp BP Sys/Unger Pulse Ox Last 24 Hr 98.6 F-100.1 F 76-94 16-18 128-155/44-76 96-100 - Lab 02/20/17 05:20 02/20/17 05:20 Most recent lab results Calcium 8.3 MG/DL (8.5-10.1) L 02/20/17 05:20 Magnesium 2.3 MG/DL (1.8-2.4) 02/19/17 05:55
--- NOTE | 2017-02-22 11:55 | Hospitalist Progress Note ---
Assessment and Plan (1) Abdominal pain Status: Acute Assessment and plan: due to Liver lesion.CT showed an interval increased size of hypodense liver lesion within segment 4 of the liver adjacent to the gall baldder fossa measuring up to 5.4cm compared to 2.7cm on prior exam-? hepatic abscess vs neoplasm. Patient had an USS guided biopsy of the liver mass. CEA and CA-19-9 are elevated Plan GI is following Follow biopsy report Follow LFTs Current Visit: No (2) ESRD (end stage renal disease) on dialysis Problem details: No acute indication for HD at this time. Status: Chronic Assessment and plan: Nephrology is following. Current Visit: No (3) Low grade fever Status: Acute Assessment and plan: will send blood, urine for cultures Liver aspirate culture-negative so far Current Visit: Yes Hospitalist: Subjective Interval history: Patient went for dialysis today. No new complaints. Exam - Constitutional Vitals: Period Temp Pulse Resp BP Sys/Unger Pulse Ox Last 24 Hr 98.6 F-100.1 F 78-94 16-18 135-155/67-76 96-98 General appearance: no acute distress, other (juandiced) - Head Head exam: Present: normal inspection - Respiratory Respiratory exam: Present: clear to auscultation bilaterally - Cardiovascular Cardiovascular exam: Present: regular rate and rhythm - GI/Abdominal GI/Abdominal exam: Present: normal bowel sounds, tenderness - Extremities Exam Extremities exam: Present: normal inspection Results - Labs CBC & BMP: 02/20/17 05:20 02/20/17 05:20 Lab Results: I have reviewed the past 24 hour labs
--- NOTE | 2017-02-22 12:04 | General Surgery Consult Note ---
Assessment and Plan (1) Liver lesion Status: Chronic Assessment and plan: His Ca 19-9 level is extremely elevated. This is suggestive of a hepatobiliary malignancy. The biopsy is pending. I discussed this with Mr Salas. I'll review with radiology to look at surgical options or possible biliary drainage options Current Visit: Yes History of Present Illness Chief complaint: Jaundice History of present illness: Mr. Salas is a 76 year old male Who presents with weakness and jaundice and vague abdominal discomfort. He does not really have abdominal pain. He had an abdominal CT scan showing what appears to be a mass in the region of his gallbladder which can no longer be visualized. Patient had acute cholecystitis several months ago that was drained percutaneously and had no problems following removal of the drain. We had discussed the option of interval cholecystectomy postoperatively in the office which he declined since he was doing well. Home Medications Medication Instructions Recorded Confirmed Type Aspirin [Ecotrin] 81 mg PO DAILY 02/24/15 02/18/17 History rOPINIRole [Requip] 0.5 mg PO TID 02/24/15 02/18/17 History Allergies Allergy/AdvReac Type Severity Reaction Status Date / Time ibuprofen [From Advil] Allergy Severe Chest Pain Verified 02/18/17 09:56 povidone-iodine AdvReac Severe ITCHING Verified 02/18/17 09:56 [From Betadine] soap [From Betadine] AdvReac Severe ITCHING Verified 02/18/17 09:56 Medical,Surgical,& Family Hx - Medical History Cardio: History of: Cardiac Dysrhythmia (Ibuprofent caused rapid heart beat) Psychological: No history of: Anxiety Disorders, ADHD, Behavior Problems, Bipolar Disorder, Depression, Previous Suicide Attempt, Psychiatric/Substance Abuse Tx, Schizophrenia, Violent Behavior, Psychiatric Problems Neurology: History of: Parkinson's Disease (Thirteen years duration) HEENT: History of: Eye Problem (GLASSES) Rheumatology: No history of;: Rheumatoid Arthritis Renal: History of: Dialysis (AV GRAFT LEFT ARM, //tue), Renal Failure Gastrointestinal: History of: Hemorrhoids (REMOVAL) Musculoskeletal: History of: Musculoskeletal Problems (PEDRO SHOULDER PAIN, RT KNEE PAIN) Hematology: History of: Blood Transfusion Reaction Other: No history of: Anesthesia Reactions - Surgical History Thoracic Surgeries: Patient denies;: Organ Transplant HEENT Surgeries: Patient denies: Eye Surgery, Tonsilectomy & Adenoidectomy Abdominal Surgeries: Surgical HX of: Colonoscopy Patient denies: Abdominal Surgery Orthopedic Surgeries: Surgical HX of;: Orthopedic Surgery (right knee sugery x 2 ), Total Hip Replacement (LEFT), Total Knee Replacement (RIGHT TOTAL KNEE) - Family History Family History: Reports;: Family Heart Disease (sister), Family Hypertension ( SISTERS), Family Stroke (SISTERS) Denies;: Family Anesthesia Reaction, Family Cancer, Family Diabetes, Family Psychiatric Problems - Social History Smoking Status: Former smoker Frequency of Alcohol Use: None Type of Drug Use: None - Constitutional Constitutional: Present: anorexia. Absent: chills, fever(s) - Cardiovascular Cardiovascular: Absent: chest pain at rest, chest pain with activity, dyspnea, dyspnea on exertion, syncope - Respiratory Respiratory: Absent: cough, dyspnea, hemoptysis, dyspnea on exertion - Gastrointestinal Gastrointestinal: Present: jaundice. Absent: abdominal pain, bloating, hematemesis, hematochezia, nausea, vomiting - Genitourinary Genitourinary: Absent: hematuria - Musculoskeletal Musculoskeletal: Absent: back pain - Neurological Neurological: Absent: focal weakness, syncope - Endocrine Endocrine: Absent: polyuria Hematologic/Lymphatic: Absent: easy bleeding, easy bruising Exam - Constitutional Vitals: Period Temp Pulse Resp BP Sys/Unger Pulse Ox Last 24 Hr 98.6 F-100.1 F 78-94 16-18 135-155/67-76 96-98 General appearance: no acute distress - Head Head exam: Present: normocephalic - Eye Eye exam: Present: scleral icterus - Neck Neck exam: Present: trachea midline - Respiratory Respiratory exam: Present: clear to auscultation bilaterally. Absent: accessory muscle use - Cardiovascular Cardiovascular exam: Present: RRR - GI/Abdominal GI/Abdominal exam: Present: soft. Absent: distended, guarding, mass, tenderness , rebound - Neurological Exam Neurological exam: Present: alert, oriented X3. Absent: motor sensory deficit Speech: Present: normal - Skin Skin exam: Present: normal color Results - Labs CBC & BMP: 02/20/17 05:20 02/20/17 05:20 Lab Results: I have reviewed the past 24 hour labs - Diagnostic Findings Procedure: CT Abdomen and Pelvis: image reviewed by me
--- NOTE | 2017-02-22 16:01 | CT Report ---
Referring physician: Argenis Gusman MD EXAM: CT abdomen and pelvis with and without contrast DATE: 02/22/2017 COMPARISON: 02/18/2017 REASON: Liver mass TECHNIQUE: Axial images of the abdomen and pelvis were obtained with and without the use of 100 cc of Omnipaque 350 IV contrast. Oral contrast was also administered. Coronal and sagittal reformatted images were also provided. Total DLP was 1964.00 mGy*cm. FINDINGS: Atelectasis at the lung bases with persistent tiny right pleural effusion. The liver remains normal in size with 58 x 54 x 51 mm masslike finding adjacent to the contracted gallbladder. There is enhancement in the periphery of this finding with no significant filling in with contrast on the delayed scans. There is associated dilatation on the intrahepatic ducts in both lobes with CBD more normal in size. The spleen, pancreas, and adrenal glands are stable in appearance. Cortical scarring in kidneys with multiple renal cysts. Renal artery calcifications with 1 mm nonobstructing right midpole renal calculus. Calcification in the wall of the nondilated abdominal aorta. Multiple enlarged periaortic, pericaval ludivina hepatis and mesentery nodes are identified. There is evidence of necrosis within the some of the enlarged nodes. Residual jomar mesentery. No dilatation of the small bowel which again is noted to extend into right inguinal hernia. Limited oral contrast in the colon with diverticulosis. No evidence of diverticulitis, appendicitis, or free air. Minimal free fluid. Additional fat-containing left inguinal hernia and prior left hip replacement. The prostate and urinary bladder are stable in appearance. Degenerative changes are noted with bridging osteophytes and bony fusion of the SI joints anteriorly. IMPRESSION: 58 x 54 x 51 mm masslike finding adjacent to the contracted gallbladder. This finding can be seen with tumor or abscess. Associated dilatation of the bile ducts in patient with history of prior cholecystotomy. Lymphadenopathy in the abdomen which can be seen with possible nesha metastasis, lymphoma, etc. Persistent jomar mesentery with minimal ascites. Cortical scarring in the kidneys with renal cysts and nonobstructing right renal calculus. Diverticulosis of the colon with its nondilated small bowel extending into right inguinal hernia. Fat-containing left inguinal hernia with prior left total hip replacement. DISH. The CT exam was performed using one or more of the following dose reduction techniques: Automated exposure control and adjustment of the mA and/or kV according to patient size. PROCEDURE INTERPRETED AT [facility] DEPARTMENT OF RADIOLOGY Final Report Signed by: Dr. Ngoc Trevizo
[2017-02-22] MEDS: ACETAMINOPHEN 325 MG TABLET PO PRN (21:24)
[2017-02-23] MEDS: SODIUM CHLORIDE 0.9% 1,000 ML IV SCH (05:41)
--- NOTE | 2017-02-23 08:23 | General Surgery Progress Note ---
Assessment and Plan (1) Liver lesion Status: Chronic Assessment and plan: His Ca 19-9 level is extremely elevated. This is suggestive of a hepatobiliary malignancy. The biopsy is pending. I discussed this with Mr Salas. I'll review with radiology to look at surgical options or possible biliary drainage options 02/23: Feels well. I repeated his CT scan with contrast using three-phase liver protocol. This shows a 5-1/2 cm mass is gallbladder fossa. Gallbladder has been essentially replaced. He has not had a cholecystectomy as indicated in the CT report. He had percutaneous drainage of typical appearing acute cholecystitis back in September. He does have some dilated intrahepatic ducts. This may mean that this is obstructive rather than an infiltrating process. Hopefully that means we can do drainage to relieve his jaundice. He has extensive portal adenopathy and I think it is unlikely that this mass would be resectable for cure. We need to consult oncology. I have offered the option of referral to [facility] to see a liver oral surgery technician. I do not think that it is resectable however he could look at options with the liver service at [facility]. He is considering this. Current Visit: Yes Subjective Patient reports: Present: feels better. Absent: still having pain, nausea, vomiting, shortness of breath, fever Exam - Constitutional Vitals: Period Temp Pulse Resp BP Sys/Unger Pulse Ox Last 24 Hr 99.2 F-102.9 F 72-115 20-22 107-194/56-98 96-98 General appearance: no acute distress - Head Head exam: Present: normocephalic - Eye Eye exam: Absent: scleral icterus - Respiratory Respiratory exam: Absent: accessory muscle use - GI/Abdominal GI/Abdominal exam: Present: soft. Absent: distended, guarding, tenderness, rebound Results - Labs CBC & BMP: 02/20/17 05:20 02/20/17 05:20 - Diagnostic Findings Procedure: CT Abdomen and Pelvis: image reviewed by me, report reviewed by me
--- NOTE | 2017-02-23 09:02 | Gastrointestinal Progress Note ---
<KatyRomy Bernardino - Last Filed: 02/23/17 08:57> Assessment and Plan (1) Abdominal pain Status: Acute Assessment and plan: 02/23-liver biopsy results noted as below. CT findings also noted below. Recheck LFTs today. Plan an addendum to follow by Dr. Ruiz per 02/22-liver biopsy pathology pending at present time. Elevated CEA and CA-19-9 noted. Recheck LFTs today. Plan an addendum to follow by Dr. Ruiz. 02/21-reports of worsening abdominal pain, pruritus and jaundice with findings of 5 x 2 cm liver lesion questionable for abscess/neoplasm. Bilirubin 13 on yesterday with lipase 551. Abdominal pain improved as well as pruritus. Dialysis Tuesday, , Tuesday. Repeat LFTs and lipase today. Plan an addendum to followed by Dr. Ruiz. Current Visit: No Gastroenterology - PN: Subj Interval history: CC: Abdominal pain Pt is seen awake and alert sitting on edge of bed. States that he is feeling about the same however less abdominal soreness at biopsy site today. 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 CT of abdomen was done on yesterday with findings of 58 x 54 x 51 mm masslike area adjacent to the gallbladder (without history of cholecystectomy) which can be seen with tumor or abscess as well as associated dilation of bile ducts, lymphadenopathy in the abdomen. Surgery has been consulted and discussion has been open regarding possible referral to [facility] for liver cardiovascular disease specialist. Patient is considering this option at this time. Abdomen is soft, nontender. ROS: Denies shortness of breath or chest pain Exam (Progress Note) - Constitutional Vitals: Period Temp Pulse Resp BP Sys/Unger Pulse Ox Last 24 Hr 99.2 F-102.9 F 72-115 18-22 107-194/53-98 96-98 General appearance: normal weight, no acute distress - Head Head exam: Present: normal inspection, normocephalic - Eye Eye exam: Present: scleral icterus, other (Lids and conjunctive are unremarkable ) - ENT ENT exam: Present: normal exam, normal oropharynx - Neck Neck exam: Present: normal inspection - Respiratory Respiratory exam: Present: clear to auscultation bilaterally. Absent: rales, rhonchi, wheezes - Cardiovascular Cardiovascular exam: Present: regular rate and rhythm. Absent: diastolic murmur , JVD, systolic murmur - GI/Abdominal GI/Abdominal exam: Present: normal bowel sounds, soft. Absent: ascites, distended, mass, organomegaly, tenderness - Extremities Exam Extremities exam: Present: normal inspection, full ROM - Back Exam Back exam: Present: normal inspection - Neurological Exam Neurological exam: Present: alert, oriented X3 - Psychiatric Psychiatric exam: Present: normal affect, normal mood - Skin Skin exam: Present: normal color, warm, dry, other (Jaundice) Results - Labs CBC & BMP: 02/20/17 05:20 02/20/17 05:20 Lab Results: I have reviewed the past 24 hour labs - Diagnostic Findings Procedure: CT Abdomen and Pelvis: report reviewed by me <Cesar Ruiz - Last Filed: 02/23/17 11:06> Exam (Progress Note) - Constitutional Vitals: Period Temp Pulse Resp BP Sys/Unger Pulse Ox Last 24 Hr 99.2 F-102.9 F 72-115 18-22 107-194/53-98 96-98 Results - Labs CBC & BMP: 02/20/17 05:20 02/20/17 05:20
[2017-02-23] MEDS: PANTOPRAZOLE 40 MG TABLET PO SCH (09:15)
[2017-02-23 10:13] LABS: Albumin 2.4 G/DL (3.4-5.0); Bilirubin,Indirect 2.9 MG/DL (0.0-1.0); Total Protein 5.9 G/DL (6.4-8.3)
[2017-02-23 10:15] LABS: Bilirubin,Total 23.9 MG/DL (0.2-1.0)
--- NOTE | 2017-02-23 12:03 | Physician Query Form ---
CLICK EDIT DOCUMENT TO SELECT QUERY ANSWER --> OK --> SIGN Genevieve Valente RN, CCDS Certified Clinical [employer] W) [phone] (f) [phone] [email or web address] PROVIDERS: Make your selection(s) from the choices in EACH section by typing an "x" and enter comments in the comment section. Please use your independent medical judgment in providing your response. This request does not imply that any particular answer is desired or expected. 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 Based on the above, could you clarify the appropriate diagnosis, if significant , that supports the above abnormalities and additional evaluation, monitoring, and/or treatment rendered: (x ) Patient has an obstructed gallbladder and bile duct due to mass ( ) Patient has an obstructed gallbladder only due to mass ( ) Patient has an obstructed bile duct only due to mass ( ) Other, please specify: ( ) Clinically unable to determine COMMENTS: PLEASE ALSO DOCUMENT RESPONSE IN PROGRESS NOTES AND/OR DISCHARGE SUMMARY Use of terms such as suspected, likely, or probable (associated with a specific diagnosis that is being evaluated, monitored, or treated as if it exists) are acceptable and can be restated in the discharge summary if not ruled out. MTDD
[2017-02-23] MEDS ORDERED: LEVOFLOXACIN INJ 500 MG in PREMIX 1 EACH IV SCH (13:00)
--- NOTE | 2017-02-23 14:32 | Nephrology Progress Note ---
Nephrology - PN: Subj Interval history: Patient denies shortness of breath. Review of systems GI he complains of some abdominal soreness Physical exam general the patient is chronically ill-appearing, he has 2+ pretibial edema, he has jaundice Assessment/plan 1. End-stage renal disease we will continue hemodialysis Tuesday basis, patient is to have a biliary stent tomorrow we will plan on doing his dialysis after this procedure 2. Hepatic mass-this is come back positive for adenocarcinoma 3. Parkinson's disease 4. Anemia Exam (PN)-Nephrology - Vital Signs Vital signs: Period Temp Pulse Resp BP Sys/Unger Pulse Ox Last 24 Hr 98.8 F-102.9 F 72-115 18-22 107-194/53-98 96-98 - Lab 02/20/17 05:20 02/20/17 05:20 Most recent lab results Calcium 8.3 MG/DL (8.5-10.1) L 02/20/17 05:20 Magnesium 2.3 MG/DL (1.8-2.4) 02/19/17 05:55
[2017-02-23] MEDS ORDERED: diphenhydrAMINE CAP 25 MG CAPSULE PO PRN (16:35)
--- NOTE | 2017-02-23 18:24 | Hospitalist Progress Note ---
Assessment and Plan (1) Abdominal pain Status: Acute Assessment and plan: due to Liver lesion.CT showed an interval increased size of hypodense liver lesion within segment 4 of the liver adjacent to the gall bladder fossa measuring up to 5.4cm compared to 2.7cm on prior exam-? hepatic abscess vs neoplasm. Patient had an USS guided biopsy of the liver mass. CEA and CA-19-9 are elevated Hepatic mass-this is come back positive for adenocarcinoma GI surgery was consulted- and they think because he has extensive portal adenopathy, mass is unlikely resectable for cure. They offered the option of referral to [facility] to see a liver microchip specialist Plan GI will be doing an ERCP for possible stent placement in a.m. Oncology consult Current Visit: No (2) ESRD (end stage renal disease) on dialysis Problem details: No acute indication for HD at this time. Status: Chronic Assessment and plan: Nephrology is following. Current Visit: No (3) Low grade fever Status: Acute Assessment and plan: Still having some low grade fever Bc and Liver aspirate culture-negative so far Continue with IV antibiotics -will get a CXR Current Visit: Yes Hospitalist: Subjective Interval history: Patient seen. Hepatic mass-this is come back positive for adenocarcinoma. He is for an ERCP in a.m for possible stent. Exam - Constitutional Vitals: Period Temp Pulse Resp BP Sys/Unger Pulse Ox Last 24 Hr 98.8 F-102.9 F 72-115 18-22 107-151/53-83 96-98 General appearance: no acute distress, other (jaundiced) - Head Head exam: Present: normal inspection - Respiratory Respiratory exam: Present: clear to auscultation bilaterally - Cardiovascular Cardiovascular exam: Present: regular rate and rhythm - GI/Abdominal GI/Abdominal exam: Present: normal bowel sounds - Extremities Exam Extremities exam: Present: normal inspection Results - Labs CBC & BMP: 02/20/17 05:20 02/20/17 05:20 Lab Results: I have reviewed the past 24 hour labs
--- NOTE | 2017-02-23 19:11 | XRay Report ---
XR chest 1V portable Indication: Fever Comparison: 30 September 2016 Findings: The heart and mediastinum are normal in size and configuration. The pulmonary vascularity is normal in caliber. No lung infiltrates, effusions, pneumothorax or other abnormality is demonstrated. Impression: No acute cardiopulmonary disease. PROCEDURE INTERPRETED AT [facility] DEPARTMENT OF RADIOLOGY Final Report Signed by: Dr. Zeke Cota
--- NOTE | 2017-02-23 20:08 | CT Report ---
CT chest wo con Indication: Cancer Comparison: None available Technique: Axial CT imaging of the chest was done at 3 mm intervals without intravenous contrast. Findings: Small amount of linear densities are present in both lung bases and left upper lobe. Otherwise the lungs show no evidence of infiltrates or airspace disease. No nodule or mass is identified. No effusion or pneumothorax is seen. The heart, mediastinum and great vessels appear within normal limits. No other abnormality is identified. Impression: No evidence of malignant process identified. Linear densities likely represent atelectasis or scarring. This CT exam was performed using one or more the following dose reduction techniques: Automated exposure control, adjustment of the MA and/or KV according to patient size, or use of iterative reconstruction technique. PROCEDURE INTERPRETED AT [facility] DEPARTMENT OF RADIOLOGY Final Report Signed by: Dr. Zeke Cota
[2017-02-23] MEDS: ACETAMINOPHEN 325 MG TABLET PO PRN (20:21)
[2017-02-24] MEDS ORDERED: PIPERACILLIN/TAZOBACTAM 3,375 MG in SODIUM CHLORIDE 0.9% 100 ML IV ONE
[2017-02-24 05:51] LABS: Basophils % 0.3 % (0.0-0.8); Eosinophils # 0.7 10*3/uL (0.0-0.87); Eosinophils % 5.9 % (0.00-10.9); Hematocrit 24.6 VOL% (42.0-52.0); Hemoglobin 9.2 GM/DL (14.0-18.0); Immature Granulocytes % 1.5 %; Immature Granulocytes Absolute 0.17 #; Lymphocytes # 1.1 10*3/uL (1.4-4.0); Lymphocytes % 9.6 % (21.2-54.2); Mean Corpuscular HGB Conc 37.4 GM/DL (32-36); Mean Corpuscular Hemoglobin 32 PG (27-34); Mean Corpuscular Volume 85.7 FL (87-102); Mean Platelet Volume 11.1 FL (9.6-12.0); Monocytes # 0.8 10*3/uL (0.11-0.8); Monocytes % 7.1 % (1.7-12.7); Neutrophils # 8.7 10*3/uL (1.4-7.4); Neutrophils % 75.6 % (38.7-73.9); Platelet Count 207 T/CUMM (130-400); Red Blood Count 2.87 MC/CUMM (3.8-5.5); Red Cell Distribution Width 19.5 % (9.3-17.3); White Blood Count 11.4 T/CUMM (4-12)
[2017-02-24 06:00] LABS: INR 1.5; PT Patient Result 16.7 SECS
[2017-02-24 06:28] LABS: Albumin 2.1 G/DL (3.4-5.0); Calcium 7.9 MG/DL (8.5-10.1); Osmolality,Calculated 271.1 MOS/KG (273-304); Potassium 5.2 MMOL/L (3.5-5.1); Total Protein 5.5 G/DL (6.4-8.3)
[2017-02-24 06:36] LABS: Bilirubin,Total 24.4 MG/DL (0.2-1.0)
--- NOTE | 2017-02-24 07:08 | XRay Report ---
Exam: XR chest 1V portable Date: 02/24/2017 4:00 AM Indication: Respiratory preop evaluation ascites renal failure Comparison: 02/23/2017 Technical: AP portable Findings: Cardiomegaly present. Lateral marginal osteophytes are present. Arthritic change present at the shoulders. No obvious consolidations. Mild interstitial thickening in the perihilar regions. Impression: 1. Mild cardiomegaly without overt decompensation 2. Arthritic change of the shoulders bilaterally. PROCEDURE INTERPRETED AT [facility] DEPARTMENT OF RADIOLOGY Final Report Signed by: Dr. Suresh Marin
--- NOTE | 2017-02-24 08:38 | General Surgery Progress Note ---
Assessment and Plan (1) Liver lesion Status: Chronic Assessment and plan: His Ca 19-9 level is extremely elevated. This is suggestive of a hepatobiliary malignancy. The biopsy is pending. I discussed this with Mr Salas. I'll review with radiology to look at surgical options or possible biliary drainage options 02/23: Feels well. I repeated his CT scan with contrast using three-phase liver protocol. This shows a 5-1/2 cm mass is gallbladder fossa. Gallbladder has been essentially replaced. He has not had a cholecystectomy as indicated in the CT report. He had percutaneous drainage of typical appearing acute cholecystitis back in September. He does have some dilated intrahepatic ducts. This may mean that this is obstructive rather than an infiltrating process. Hopefully that means we can do drainage to relieve his jaundice. He has extensive portal adenopathy and I think it is unlikely that this mass would be resectable for cure. We need to consult oncology. I have offered the option of referral to [facility] to see a liver event specialist product demonstrator. I do not think that it is resectable however he could look at options with the liver service at [facility]. He is considering this. 02/24: He feels better today and there are plans for ERCP. Hopefully we can achieve biliary drainage. I suspect that this is unresectable based on his portal adenopathy however I will discuss this case with Dr. Massey at [facility]. Current Visit: Yes Subjective Patient reports: Present: feels better, pain is less. Absent: nausea, vomiting Exam - Constitutional Vitals: Period Temp Pulse Resp BP Sys/Unger Pulse Ox Last 24 Hr 98.8 F-102.3 F 80-84 18-20 124-151/56-72 95-100 General appearance: no acute distress - Eye Eye exam: Present: scleral icterus - Respiratory Respiratory exam: Absent: accessory muscle use - GI/Abdominal GI/Abdominal exam: Present: soft. Absent: distended, tenderness Results - Labs CBC & BMP: 02/24/17 05:15 02/24/17 05:15 Lab Results: I have reviewed the past 24 hour labs
--- NOTE | 2017-02-24 08:42 | EKG Report ---
Stationary ECG Study [facility] Test Date: 02/24/2017 7:16:30 AM Pat Name: KEMI ISAACS Department: Room: 525 Gender: M Coper Hand: IZABELLA : 1940 Requested by: Ngoc Shipley Order Number: [id number] Reading MD: RODRÍGUEZ WALLACE Intervals Adams Rate: 81 P: 17 SC: 142 QRS: 264 QRSD: 161 T: -6 QT: 429 QTc: 467 Interpretive Statements SINUS RHYTHM MARKED RIGHT AXIS DEVIATION RIGHT BUNDLE BRANCH BLOCK Electronically Signed On 02-24-17 11:32:13 CDT by RODRÍGUEZ WALLACE [email or web address]
[2017-02-24] MEDS: PIPERACILLIN/TAZOBACTAM 3,375 MG in SODIUM CHLORIDE 0.9% 100 ML IV SCH (10:26)
[2017-02-24] MEDS: PANTOPRAZOLE 40 MG TABLET PO SCH (10:27)
[2017-02-24] MEDS ORDERED: GLUCAGON 1 MG VIAL ONE (10:55)
[2017-02-24] MEDS ORDERED: GLYCOPYRROLATE 0.4 MG/2 ML VIAL ONE (11:30)
[2017-02-24] MEDS ORDERED: LIDOCAINE 2% 5 ML VIAL ONE (11:30)
[2017-02-24] MEDS ORDERED: NEOSTIGMINE 10 MG/10 ML VIAL ONE (11:30)
[2017-02-24] MEDS ORDERED: SUCCINYLCHOLINE 200 MG/10 ML VIAL ONE (11:30)
[2017-02-24] MEDS ORDERED: ROCURONIUM 100 MG/10 ML VIAL IV ONE (11:30)
[2017-02-24] MEDS ORDERED: PROPOFOL 200 MG/20 ML VIAL IV ONE (11:30)
--- NOTE | 2017-02-24 11:30 | Hospitalist Progress Note ---
Assessment and Plan (1) Abdominal pain Status: Acute Assessment and plan: due to Liver lesion.CT showed an interval increased size of hypodense liver lesion within segment 4 of the liver adjacent to the gall bladder fossa measuring up to 5.4cm compared to 2.7cm on prior exam-? hepatic abscess vs neoplasm. Patient had an USS guided biopsy of the liver mass. CEA and CA-19-9 are elevated Hepatic mass-this is come back positive for adenocarcinoma Surgery was consulted- and they think because he has extensive portal adenopathy , mass is unlikely resectable for cure. They offered the option of referral to [facility] to see a liver event specialist product demonstrator CT Chest: showed no evidence of a malignant process Plan GI will be doing an ERCP for possible stent placement today. Oncology yet to see -continue with pain meds Current Visit: No (2) ESRD (end stage renal disease) on dialysis Problem details: No acute indication for HD at this time. Status: Chronic Assessment and plan: Nephrology is following.He will go for dialysis today after ERCP. Current Visit: No (3) Low grade fever Status: Acute Assessment and plan: Still having some low grade fever Bc and Liver aspirate culture-negative so far. CXR- un remarkable, cardiomegaly Plan switch IV Levaquin to Zosyn for broader coverage Current Visit: Yes Hospitalist: Subjective Interval history: Patient is a 76yr old admitted for abd pain. CT showed an hepatic mass positive for adenocarcinoma. Patient was sleeping on his bed, woke up and said he was hurting all over. He looked more jaundiced. He had a fever of 100.[address] Chest showed no evidence of malignant process seen. Exam - Constitutional Vitals: Period Temp Pulse Resp BP Sys/Unger Pulse Ox Last 24 Hr 98.8 F-102.3 F 80-84 18-20 120-151/56-72 95-100 General appearance: no acute distress, other (jaundiced) - Head Head exam: Present: normal inspection - Respiratory Respiratory exam: Present: clear to auscultation bilaterally - Cardiovascular Cardiovascular exam: Present: regular rate and rhythm - GI/Abdominal GI/Abdominal exam: Present: tenderness - Extremities Exam Extremities exam: Present: normal inspection - Neurological Exam Neurological exam: Present: alert, oriented X3 Results - Labs CBC & BMP: 02/24/17 05:15 02/24/17 05:15 Lab Results: I have reviewed the past 24 hour labs
[2017-02-24] MEDS ORDERED: SEVOFLURANE 1 UNIT/15 MINUTE INH ONE (13:03)
[2017-02-24] MEDS ORDERED: MIDAZOLAM 2 MG/2 ML VIAL ONE (13:03)
--- NOTE | 2017-02-24 13:38 | Anesthesia Post-Op ---
Anesthesia Post OP - Post Ansesthetic Evaluation Patient seen in post op: Yes Resp: within normal limits CV: within normal limits Mental: within normal limits Temp: within normal limits [id number]: within normal limits Nausea and Vomiting: within normal limits Pain: within normal limits
--- NOTE | 2017-02-24 14:10 | Oncology Consult Note ---
Assessment and Plan (1) Liver carcinoma Status: Acute Assessment and plan: There is no option for a pancreaticobiliary tumor so I will label his diagnosis is liver cancer for charting purposes. I recommend hospice care either at home or in a custodial. Since his hemodialysis is not related to his malignancy he can continue hemodialysis even while on hospice. I will ask social service liaison to consult [facility] so that I can continue following him through the hospice service. Current Visit: Yes (2) ESRD (end stage renal disease) on dialysis Problem details: No acute indication for HD at this time. Status: Chronic Current Visit: No (3) Parkinson disease, symptomatic Status: Chronic Current Visit: No History of Present Illness History of present illness: Mr. Salas is a 76 year old male with advanced Parkinson's and end-stage renal disease on hemodialysis who was admitted with jaundice and was found to have a large liver mass near the gallbladder fossa. There is also necrotic lymph nodes in the upper abdomen that are most likely malignant. 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 His CA-19-9 level is extremely elevated. His CEA level is also elevated. His bilirubin level has been above 20. He underwent ERCP today but I am unsure what was done as the report is not on the computer at this time. I think they are attempting to do a internal stent. I had a lengthy discussion with Mr. Salas today while he was on dialysis. I explained to him that this is a very bad diagnoses even in someone young and fit. Given the associated lymph nodes, this tumor is unresectable. Even if this tumor was resectable, he would not be a surgical candidate given his numerous comorbidities. Chemotherapy for pancreaticobiliary tumors is practically ineffective and highly toxic. I do not see it adding much to his quality of life or life expectancy. I have recommended to him that he consider doing nothing about this. I think we should set him up on home hospice once he is discharged. He lives alone so he may be better served by being placed in a custodial as his functional status will continue to decline over the next few weeks. I will defer the consideration for custodial placement to his primary physicians but will go ahead and ask social work to consult [facility] for hospice care wherever he is discharged to. I do not anticipate him to survive more than a few weeks to a few months at best. I do not see strong reason to refer him to [facility] for surgical evaluation for the reasons mentioned above. I have discussed my recommendation for hospice care with Mr. Salas and he is in agreement. Home Medications Medication Instructions Recorded Confirmed Type Aspirin [Ecotrin] 81 mg PO DAILY 02/24/15 02/18/17 History rOPINIRole [Requip] 0.5 mg PO TID 02/24/15 02/18/17 History Allergies Allergy/AdvReac Type Severity Reaction Status Date / Time ibuprofen [From Advil] Allergy Severe Chest Pain Verified 02/18/17 09:56 povidone-iodine AdvReac Severe ITCHING Verified 02/18/17 09:56 [From Betadine] soap [From Betadine] AdvReac Severe ITCHING Verified 02/18/17 09:56 Medical,Surgical,& Family Hx - Medical History Cardio: History of: Cardiac Dysrhythmia (Ibuprofent caused rapid heart beat) Psychological: No history of: Anxiety Disorders, ADHD, Behavior Problems, Bipolar Disorder, Depression, Previous Suicide Attempt, Psychiatric/Substance Abuse Tx, Schizophrenia, Violent Behavior, Psychiatric Problems Neurology: History of: Parkinson's Disease (Thirteen years duration) HEENT: History of: Eye Problem (GLASSES) Rheumatology: No history of;: Rheumatoid Arthritis Renal: History of: Dialysis (AV GRAFT LEFT ARM, //tue), Renal Failure Gastrointestinal: History of: Hemorrhoids (REMOVAL) Musculoskeletal: History of: Musculoskeletal Problems (PEDRO SHOULDER PAIN, RT KNEE PAIN) Hematology: History of: Blood Transfusion Reaction Other: No history of: Anesthesia Reactions - Surgical History Thoracic Surgeries: Patient denies;: Organ Transplant HEENT Surgeries: Patient denies: Eye Surgery, Tonsilectomy & Adenoidectomy Abdominal Surgeries: Surgical HX of: Colonoscopy Patient denies: Abdominal Surgery Orthopedic Surgeries: Surgical HX of;: Orthopedic Surgery (right knee sugery x 2 ), Total Hip Replacement (LEFT), Total Knee Replacement (RIGHT TOTAL KNEE) - Family History Family History: Reports;: Family Heart Disease (sister), Family Hypertension ( SISTERS), Family Stroke (SISTERS) Denies;: Family Anesthesia Reaction, Family Cancer, Family Diabetes, Family Psychiatric Problems - Social History Smoking Status: Former smoker Frequency of Alcohol Use: None Type of Drug Use: None 12 point system: reviewed and no additional remarkable complaints except as stated - Constitutional Constitutional: Present: fatigue - Gastrointestinal Gastrointestinal: Present: abdominal pain, jaundice Exam - Constitutional Vitals: Period Temp Pulse Resp BP Sys/Unger Pulse Ox Last 24 Hr 97.2 F-102.3 F 75-84 16-20 120-173/49-72 95-100 General appearance: no acute distress, over weight - Head Head Exam: Present: normocephalic, atraumatic - Eye Eye Exam: Present: scleral icterus Pupils: Present: PERRL - ENT ENT exam: Present: normal exam, normal oropharynx - Neck Neck exam: Absent: lymphadenopathy, thyromegaly - Respiratory Respiratory exam: Present: CTAB. Absent: wheezes - Cardiovascular Cardiovascular exam: Present: RRR. Absent: JVD, tachycardia - GI/Abdominal GI/Abdominal exam: Present: distended. Absent: mass - Neurological Exam Neurological exam: Present: alert, oriented X3 - Psychiatric Psychiatric exam: Present: normal affect, normal mood - Skin Skin exam: Present: warm, dry Results - Labs CBC & BMP: 02/24/17 05:15 02/24/17 05:15 Lab Results: I have reviewed the past 24 hour labs - Diagnostic Findings Procedure: CT Abdomen and Pelvis: report reviewed by me, image reviewed by me, CT - chest: report reviewed by me, Ultrasound: report reviewed by me
--- NOTE | 2017-02-24 14:31 | Fluoroscopy Report ---
Exam: FL ERCP Date: 02/24/2017 Indication: Pain Findings: 14 minutes fluoroscopy time and 40 cc of Omnipaque 240 were administered. No sphincterotomy performed and the stent was placed in the common bile duct. Small air bubbles present in the pancreatic duct. The exam reveals no balloon sweep. Mass present in the gallbladder fossa by history Impression: Plastic stent placed in the common bile duct. No obvious ductal dilatation otherwise noted with an area of narrowing in the distal CBD at the common bile duct common hepatic duct junction. PROCEDURE INTERPRETED AT [facility] DEPARTMENT OF RADIOLOGY Final Report Signed by: Dr. Suresh Marin
--- NOTE | 2017-02-24 14:43 | Dialysis Note ---
Dialysis Note - Dialysis Note Mr. Salas is seen during his hemodialysis. He is asleep with a stable blood pressure on dialysis. Plan is to continue to support with dialysis
[2017-02-24] MEDS: ACETAMINOPHEN 325 MG TABLET PO PRN (17:59)
--- NOTE | 2017-02-24 18:08 | Operative Note ---
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 Informed symptoms obtained from the patient He was sedated with general anesthesia in the operating room. Please see anesthesia record for details. Patient was placed in the prone position the Olympus duodenal scope was inserted and advanced under the direct vision through the esophagus stomach pylorus to the level of the duodenum. There is a fairly prominent duodenum with no abnormal mucosa. The does appear to be some associated diverticulum. The pancreatic duct was opacified revealing a normal pancreatic duct or the head body tail the pancreas. With difficulty we were able to cannulate the common bile duct with what appears to be a small distal stricture but may simply be a shelf from the diverticulum. The common hepatic duct and common bile duct appeared normal in size the cystic duct is patent and the residual gallbladder is identified. Near the region of ludivina hepatis there is a very tight stricture formation approximately 2 cm in length consistent with Klatskin type tumor. There is proximal biliary dilatation noted above this lesion. Guidewire was passed across this area and subsequently a 8 mm sphincterotomy was performed. Attempts to place an 11 Italian 12 cm stent were met with resistance due to the tightness of the stricture and we can never fully position the stent across the stricture. This was subsequently removed with the endoscope and the scope was reinserted to the level of the ampulla with recannulation and passage of the wire through the stricture and a repeat attempt was made with an 8.5 Italian by 12 cm stent that was successfully placed across the stricture. On fluoroscopy there is some question about whether or not we are actually draining just the left side or both sides of the intrahepatic ducts. The procedure was terminated patient tolerated procedure well he was discharged to recovery in good condition Postop diagnosis: 1. 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 Will observe bilirubin response if he has no effective improvement in his bilirubin may need to consider percutaneous study to assess the right hepatic system which may not be adequately drained with this. Often however drainage of one side will significantly improve overall clinical condition. 2. I have spoken with Dr. Gonzalez the third to talk with Dr. Kvng Massey in [place] and given the evidence of apparent nesha involvement on CT, market elevation of his CA-19-9 level and obstructive jaundice it is unlikely that he would be a candidate for surgical options or transplant. He has been seen by oncology and hopefully as his bilirubin improves consideration of chemotherapeutic options may be available. Anesthesia: GETA Surgeon / Physician: Cesar Ruiz Estimated blood loss: none Specimens: none sent Condition: stable Disposition: post procedure unit Results - Labs CBC & BMP: 02/24/17 05:15 02/24/17 05:15 Discharge Plan - Discharge Medications No Action rOPINIRole [Requip] 0.5 mg PO TID Aspirin [Ecotrin] 81 mg PO DAILY - Follow Up or Referral - Forms/Instructions
[2017-02-25] MEDS: ACETAMINOPHEN 325 MG TABLET PO PRN
[2017-02-25 07:53] LABS: Basophils % 0.4 % (0.0-0.8); Eosinophils # 0.7 10*3/uL (0.0-0.87); Eosinophils % 6.7 % (0.00-10.9); Hematocrit 25.3 VOL% (42.0-52.0); Hemoglobin 9.3 GM/DL (14.0-18.0); Immature Granulocytes % 1.7 %; Immature Granulocytes Absolute 0.17 #; Lymphocytes # 1.3 10*3/uL (1.4-4.0); Lymphocytes % 12.3 % (21.2-54.2); Mean Corpuscular HGB Conc 36.8 GM/DL (32-36); Mean Corpuscular Hemoglobin 32 PG (27-34); Mean Corpuscular Volume 87.2 FL (87-102); Mean Platelet Volume 11.1 FL (9.6-12.0); Monocytes # 0.6 10*3/uL (0.11-0.8); Monocytes % 5.9 % (1.7-12.7); Neutrophils # 7.5 10*3/uL (1.4-7.4); Platelet Count 220 T/CUMM (130-400); Red Cell Distribution Width 20.2 % (9.3-17.3); White Blood Count 10.2 T/CUMM (4-12)
[2017-02-25 08:27] LABS: Albumin 2.2 G/DL (3.4-5.0); Calcium 8.2 MG/DL (8.5-10.1); Osmolality,Calculated 275.4 MOS/KG (273-304); Potassium 4.5 MMOL/L (3.5-5.1); Total Protein 5.8 G/DL (6.4-8.3)
--- NOTE | 2017-02-25 08:30 | Nephrology Progress Note ---
Nephrology - PN: Subj Interval history: Patient denies shortness of breath. Review of systems GI he states he had some vomiting last night but thinks this may have been related to his operative procedure earlier in the day. He denies abdominal pain Physical exam general the patient is chronically ill-appearing, he has trace to 1+ pretibial edema Assessment/plan #1. End-stage renal disease-we will continue hemodialysis support 2. Hepatic mass-this is an adenocarcinoma, he is been seen by oncology his disease does not sound amenable to chemotherapy and oncology has recommended hospice care. 3. Parkinson's disease 4. Anemia this is stable with hematocrit around 26% Exam (PN)-Nephrology - Vital Signs Vital signs: Period Temp Pulse Resp BP Sys/Unger Pulse Ox Last 24 Hr 97.2 F-101 F 75-102 16-20 100-173/40-60 94-100 - Lab 02/25/17 07:33 02/24/17 05:15 Most recent lab results Calcium 7.9 MG/DL (8.5-10.1) L 02/24/17 05:15 Magnesium 2.3 MG/DL (1.8-2.4) 02/19/17 05:55
--- NOTE | 2017-02-25 08:45 | Gastrointestinal Progress Note ---
<KatyRomy Bernardino - Last Filed: 02/25/17 08:41> Assessment and Plan (1) Abdominal pain Status: Acute Assessment and plan: 02/25-Post ERCP stent placement. Bilirubin down slighlty at 22. Increased diarrhea. Check stool studies. Plan and addendum to follow by Dr Ruiz. 02/23-liver biopsy results noted as below. CT findings also noted below. Recheck LFTs today. Plan an addendum to follow by Dr. Ruiz per 02/22-liver biopsy pathology pending at present time. Elevated CEA and CA-19-9 noted. Recheck LFTs today. Plan an addendum to follow by Dr. Ruiz. 02/21-reports of worsening abdominal pain, pruritus and jaundice with findings of 5 x 2 cm liver lesion questionable for abscess/neoplasm. Bilirubin 13 on yesterday with lipase 551. Abdominal pain improved as well as pruritus. Dialysis Tuesday, , Tuesday. Repeat LFTs and lipase today. Plan an addendum to followed by Dr. Ruiz. Current Visit: No Gastroenterology - PN: Subj Interval history: CC: Jaundice Pt is seen sitting up on side of bed. States he is feeling about the same today. His bilirubin is noted to be down slightly at 22 post stent placement on yesterday. He denies any abdominal pain at this time. He states he is having diarrhea since his procedure on yesterday. He states he has had some episodes of this but not like since yesterday. He reports several episodes overnight with nocturnal defecation w/o incontinence. He is having mild abd cramping as well. Will check stools today. Abdomen is soft, nontender. He has consulted with oncology who recommends hospice care at this point. ROS: Denies SOB or chest pain Exam (Progress Note) - Constitutional Vitals: Period Temp Pulse Resp BP Sys/Unger Pulse Ox Last 24 Hr 97.2 F-101 F 75-102 16-20 100-173/40-60 94-100 General appearance: normal weight, no acute distress - Head Head exam: Present: normal inspection, normocephalic - Eye Eye exam: Present: scleral icterus, other (lids and conjunctiva unremarkable) - ENT ENT exam: Present: normal exam, normal oropharynx - Neck Neck exam: Present: normal inspection - Respiratory Respiratory exam: Present: clear to auscultation bilaterally. Absent: rales, rhonchi, wheezes - Cardiovascular Cardiovascular exam: Present: regular rate and rhythm. Absent: diastolic murmur , JVD, systolic murmur - GI/Abdominal GI/Abdominal exam: Present: normal bowel sounds, soft. Absent: ascites, distended, mass, organomegaly, tenderness - Extremities Exam Extremities exam: Present: normal inspection, full ROM - Back Exam Back exam: Present: normal inspection - Neurological Exam Neurological exam: Present: alert, oriented X3 - Psychiatric Psychiatric exam: Present: normal affect, normal mood - Skin Skin exam: Present: normal color, warm, dry, other (jaundice) Results - Labs CBC & BMP: 02/25/17 07:33 02/25/17 07:32 Lab Results: I have reviewed the past 24 hour labs <Cesar Ruiz - Last Filed: 02/25/17 10:18> Exam (Progress Note) - Constitutional Vitals: Period Temp Pulse Resp BP Sys/Unger Pulse Ox Last 24 Hr 97.2 F-101 F 75-102 16-20 100-173/40-60 94-100 Results - Labs CBC & BMP: 02/25/17 07:33 02/25/17 07:32
[2017-02-25 08:53] LABS: Albumin 2.2 G/DL (3.4-5.0); Bilirubin,Direct 17.9 MG/DL (0.0-0.20); Total Protein 5.7 G/DL (6.4-8.3)
[2017-02-25 08:54] LABS: Bilirubin,Total 22.3 MG/DL (0.2-1.0)
[2017-02-25 08:55] LABS: Bilirubin,Indirect 4.4 MG/DL (0.0-1.0); Bilirubin,Total 22.3 MG/DL (0.2-1.0)
[2017-02-25] MEDS: PIPERACILLIN/TAZOBACTAM 3,375 MG in SODIUM CHLORIDE 0.9% 100 ML IV SCH (08:58)
[2017-02-25] MEDS: PANTOPRAZOLE 40 MG TABLET PO SCH (08:58)
--- NOTE | 2017-02-25 10:34 | General Surgery Progress Note ---
Assessment and Plan (1) Abdominal pain Status: Acute Assessment and plan: Continue antibiotics and monitor lab work. The patient was febrile last night but it is better this morning. We will just keep an eye on this for now. Current Visit: No Subjective Patient reports: Present: no new complaints, feels better, pain is less, fever Narrative: The patient had a high fever overnight but it is gone this morning. His itching is a little bit better but still present. His white blood cell count is normal today and his hemoglobin is stable. Bilirubin is a little bit better today. Exam - Constitutional Vitals: Period Temp Pulse Resp BP Sys/Unger Pulse Ox Last 24 Hr 97.2 F-101 F 75-102 16-20 100-173/40-60 94-100 General appearance: no acute distress, over weight - Head Head exam: Present: normal inspection, normocephalic - Eye Eye exam: Present: EOMI, scleral icterus Pupils: Present: MAKENNA - ENT ENT exam: Present: normal exam Mouth exam: Present: normal external inspection, normal voice - Neck Neck exam: Present: normal inspection, trachea midline - Respiratory Respiratory exam: Present: clear to auscultation bilaterally. Absent: accessory muscle use, chest wall tenderness - Cardiovascular Cardiovascular exam: Present: RRR. Absent: systolic murmur, tachycardia - GI/Abdominal GI/Abdominal exam: Present: normal bowel sounds, soft. Absent: distended, tenderness, rebound - Extremities Exam Extremities exam: Present: normal inspection, normal capillary refill - Back Exam Back exam: Present: normal inspection - Neurological Exam Neurological exam: Present: alert, oriented X3 Speech: Present: normal - Skin Skin exam: Present: normal color, warm Results - Labs CBC & BMP: 02/25/17 07:33 02/25/17 07:32
--- NOTE | 2017-02-25 11:25 | Discharge Summary ---
<Grisel Galeano - Last Filed: 02/25/17 11:20> Discharge Plan - Discharge Data Disposition: Hospice - Home - Discharge Medications New Pantoprazole Tab [Protonix Tab] 40 mg PO DAILY #30 tablet Continue rOPINIRole [Requip] 0.5 mg PO TID Aspirin [Ecotrin] 81 mg PO DAILY - Follow Up or Referral - Forms/Instructions Exam - Constitutional Vitals: Period Temp Pulse Resp BP Sys/Unger Pulse Ox Last 24 Hr 97.2 F-101 F 75-102 12-20 100-173/40-62 94-100 Discharge Results Procedures and tests throughout hospitalization: Pending Orders 02/22/17 09:08 Blood Culture Stat 02/22/17 11:56 Urine Culture Routine 02/22/17 12:30 Blood Culture Routine 02/24/17 09:45 Blood Culture Stat 02/25/17 11:25 C. Diff Toxins A & B Routine Stool Culture Routine Stool for WBCs Routine Labs on day of discharge: Labs from last 24 hours 02/25/17 02/25/17 02/25/17 07:33 07:32 07:32 WBC 10.2 RBC 2.90 L Hgb 9.3 L Hct 25.3 L MCV 87.2 MCH 32 MCHC 36.8 H RDW 20.2 H Plt Count 220 MPV 11.1 Neut % (Auto) 73.0 Lymph % (Auto) 12.3 L [place] % (Auto) 5.9 Eos % (Auto) 6.7 Baso % (Auto) 0.4 Neut # (Auto) 7.5 H Lymph # (Auto) 1.3 L [place] # (Auto) 0.6 Eos # (Auto) 0.7 Baso # (Auto) 0.0 Immature Gran % 1.7 Nucleated RBC % 0.0 Immature Gran # 0.17 Nucleated RBCs # 0.00 Sodium 133 L Potassium 4.5 Chloride 96 L Carbon Dioxide 22 Anion Gap 19.5 H BUN 43 H Creatinine 7.50 H GFR Calculation 8 BUN/Creatinine Ratio 5.00 L Glucose 80 Calculated Osmolality 275.4 Calcium 8.2 L Total Bilirubin 22.30 H* 22.30 H* Direct Bilirubin 17.90 H Indirect Bilirubin 4.4 H AST 92 H 92 H ALT 44 45 Alkaline Phosphatase 167 H 171 H Ammonia Total Protein 5.7 L 5.8 L Albumin 2.2 L 2.2 L Globulin 3.6 H Albumin/Globulin Ratio 0.6 L 02/24/17 14:08 WBC RBC Hgb Hct MCV MCH MCHC RDW Plt Count MPV Neut % (Auto) Lymph % (Auto) [place] % (Auto) Eos % (Auto) Baso % (Auto) Neut # (Auto) Lymph # (Auto) [place] # (Auto) Eos # (Auto) Baso # (Auto) Immature Gran % Nucleated RBC % Immature Gran # Nucleated RBCs # Sodium Potassium Chloride Carbon Dioxide Anion Gap BUN Creatinine GFR Calculation BUN/Creatinine Ratio Glucose Calculated Osmolality Calcium Total Bilirubin Direct Bilirubin Indirect Bilirubin AST ALT Alkaline Phosphatase Ammonia 12 Total Protein Albumin Globulin Albumin/Globulin Ratio Preliminary micro results at discharge 02/24/17 09:45 Blood Culture - Preliminary Blood No growth at 1 day 02/24/17 09:45 Blood Culture - Preliminary Blood No growth at 1 day 02/22/17 09:08 Blood Culture - Preliminary Blood No growth at 1 day 02/22/17 09:08 Blood Culture - Preliminary Blood No growth at 1 day 02/22/17 12:30 Blood Culture - Preliminary Blood No growth at 1 day 02/22/17 12:31 Blood Culture - Preliminary Blood No growth at 1 day DS: Provider Date of admission: 02/18/17 14:46 Primary care physician: Jaison Thomas MD Attending physician on admission: Argenis Gusman MD Consults: 02/18/17 17:06 Consult to Physician [CONS] Routine Comment: Consulting Provider: Cesar Ruiz Consulting Provider Notified: Yes Consult to Specialist Group: Gastroenterology Person Notified: aware Date Notified: 02/19/17 Time Notified: 09:49 02/18/17 17:08 Consult to Physician [CONS] Routine Comment: Consulting Provider: Tj Waddell Jr. Consult to Specialist Group: Nephrology When should Consulting Provider be notified: In am Person Notified: aware Date Notified: 02/18/17 Time Notified: 18:00 02/21/17 12:37 Consult to Physician [CONS] Routine Comment: ?? liver mass/recent perc drain/seen by you Consulting Provider: Keshawn Gonzalez III. Person Notified: Jeanne Date Notified: 02/21/17 Time Notified: 12:55 02/23/17 18:34 Consult to Physician [CONS] Routine Comment: Consulting Provider: Elia Contreras Consult to Specialist Group: Oncology When should Consulting Provider be notified: In am Person Notified: Lizeth Date Notified: 02/24/17 Time Notified: 10:28 02/24/17 14:20 Consult to Case Mgmt/Social Srvs [CONS] Routine Reason for Case Mgmt/Social Srvs: Hospice Referral Consult Comment: Please consult [facility] for evaluation. Discharging clinician: CYNTHIA Lara <Louie Velasquez - Last Filed: 02/25/17 12:28> Discharge Plan - Discharge Data Condition at Discharge: Undetermined Discharge Diet: advance to your usual diet Activity: resume usual activities as tolerated Hygiene: may tub bathe, other (With assistance as needed) Weight Bearing at Discharge: weight bear as tolerated Driving: other (No driving) Contact your physician if you experience:: fever over 101, Shortness of breath Exam - Constitutional General appearance: over weight - Head Head exam: Present: normocephalic, atraumatic - Eye Eye exam: Present: EOMI, other (Icterus) Pupils: Present: MAKENNA - ENT ENT exam: Present: normal exam - Neck Neck exam: Present: normal inspection, other (No thyromegaly and no lymphadenopathy) - Respiratory Respiratory exam: Present: clear to auscultation bilaterally - Cardiovascular Cardiovascular exam: Present: regular rate and rhythm - GI/Abdominal GI/Abdominal exam: Present: normal bowel sounds, soft - Extremities Exam Extremities exam: Present: full ROM - Back Exam Back exam: Present: normal inspection - Neurological Exam Neurological exam: Present: alert, oriented X3, CN II-XII intact - Psychiatric Psychiatric exam: Present: normal affect, normal mood - Skin Skin exam: Present: warm, dry, other (Jaundice)
[2017-02-25 11:52] VITALS: BP 127/62
[2017-02-25] MEDS ORDERED: LEVOFLOXACIN INJ 250 MG in PREMIX 1 EACH IV SCH (13:00)
== END 2017-02-25 16:23 | disposition hospice, home (50) | DRG 435 ==
LOC: N.ED 09:28 → SUATTDRO 14:46 → N.EDINP 14:46 → N.5E 16:46
PROVIDERS: ADMIT Internal Medicine; ATTEND Internal Medicine Infectious Disease